=== PATIENT | female | born 1975 | race Caucasian/White ===

== ENCOUNTER 2023-08-14 22:37 | Outpatient (REF) | payer OTHER, SELFPAY ==
[2023-08-18 05:07] LABS: Age Gdln ACOG Testing Note (.); HPV Aptima Negative (Negative); IGP, Aptima HPV, rfx 16/18,45 Note (.)
== END 2023-08-14 22:38 | disposition home or self-care (01) ==
LOC: LAB 22:37
PROVIDERS: Visit Provider Physician Assistant
DX: Z01.419 Encounter for gynecological examination (general) (routine) without abnormal findings (principal)
CPT/HCPCS: 87624; G0145

== ENCOUNTER 2023-11-13 08:33 | Outpatient (OUT) | payer OTHER, SELFPAY ==
--- NOTE | 2023-11-13 08:36 | MM_ITS ---
Patient Name: AGUSTÍN BURNHAM MR#: [id number] : 1975 Exam Date: 11/13/2023 Ordering Doctor: DR Yaya Bacon . RADIOLOGY REPORT PROCEDURE: MM TOMOSYNTHESIS SCREENING BI COMPARISON: MG MAMM SCREEN 3D GUNJAN CAD, 09/21/2021. MG MAMM SCREEN 3D GUNJAN CAD, 10/26/2022. INDICATIONS: screening Calculator Name NCI Breast Cancer Risk Assessment Tool 5 Year Breast Cancer Risk 0.80% Lifetime Breast Cancer Risk 8.40% Personal Breast Cancer No Personal Ovarian Cancer No Treatments None Family Cancers Aunt-maternal with breast cancer at age ~43; Father with lung cancer at age 51. LOCATION: [facility] BREAST COMPOSITION: Heterogeneously dense,which may obscure small masses. FINDINGS: DIAGNOSTIC CATEGORY 2--BENIGN FINDING. NO CHANGE FROM COMPARISON. Scattered benign-appearing nodules are present. Scattered benign-appearing lymph nodes are present. RIGHT BREAST: No significant suspicious finding. LEFT BREAST: No significant suspicious finding. RECOMMENDATIONS: ROUTINE MAMMOGRAM AND CLINICAL EVALUATION IN 12 MONTHS. PLEASE NOTE: A NORMAL MAMMOGRAM DOES NOT EXCLUDE THE POSSIBILITY OF BREAST CANCER. A CLINICALLY SUSPICIOUS PALPABLE LUMP SHOULD BE BIOPSIED. Dictated by: Abelino Rolon MD on 11/14/2023 at 07:38 Approved by: Abelino Rolon MD on 11/14/2023 at 07:39
--- OUTSIDE RECORDS SUMMARY | 2023-11-13 08:50 | XMS_ITS | CCD ---
Author Organization [facility] Care Team Providers Care Stone Polisher Name Role Phone Jdmartytai DEVINE Eden Demario Primary Care Provider ESTEE EDEN Demario Referring Unavailable YONLEY, EDEN L Primary Care Unavailable YONLEY, EDEN L Referring Unavailable YONLEY, EDEN L Primary Care Unavailable PRAKASH ., SONJA Admitting Unavailable PRAKASH ., SONJA Attending Unavailable REQUEST, NONE LISTED Primary Care Unavaila ble KELLY ., DR BIGGS Admitting Unavailable KELLY ., DR BIGGS Attending Unavailable REQUEST, NONE LISTED Primary Care Unavaila ble KELLY ., DR BIGGS Consulting Unavailable PRAKASH ., SONJA Admitting Unavailable PRAKASH ., SONJA Attending Unavailable REQUEST, NONE LISTED Primary Care Unavaila ble PRAKASH ., SONJA Consulting Unavailable KELLY ., DR BIGGS Admitting Unavailable KELLY ., DR BIGGS Attending Unavailable [facility], DR SHERWOOD Primary Care Unavailable LEETONIA, DR DAGOBERTO Jernigan Consulting Unavailable KELLY ., DR BIGGS Consulting Unavailable Ruma, Seun Attending Unavailable Seun Hendrix Admitting Unavailable Hilda Barreto Primary Care Unavailable Anil Madison DO Primary Care Provider Hilda aBrreto NP Unavailable SONJA RANDALL Attending Unavailable PRAKASH, SONJA Attending Unavailable KELLYKALYAN Attending Unavailable Allergies Allergy Classification Reported Allergen(s) Allergy Type Date of Onset Reaction(s) Facility Penicillins (antibiotic) (2 sources) Amoxicillin Drug Allergy 09-10-19 [facility] Sulfonamides (antibiotic) (2 sources) Sulfonamides (Antibiotic) Drug Allergy 09-10-19 19 Rash [facility] (3 sources) Amoxicillin Drug Allergy 09-10-19 19 Rash, Unknown [facility] (3 sources) Sulfonamides (Antibiotic) Propensity to adverse reactions to drug 09-10-19 Rash JALYN JASEN [employer] Work Phone: (2 sources) Amoxicillin Drug Allergy 03-10-20 [facility] (2 sources) Sulfonamides (Antibiotic) Drug allergy (disorder) 03-10-20 [facility] (1 source) Sulfamethoxazole / Trimethoprim Drug Allergy 01-31-20 Unknown [facility] Medications Current Medications Medication Drug Class(es) Dates Sig (Normalized) Sig (Original) benzonatate 100 mg oral capsule (1 source) Non-narcotic Antitussive Start: 08-27-2021 take 1 capsule by mouth three times daily as needed for cough benzonatate (TESSALON) 100 MG capsule Take 1 capsule by mouth 3 times daily as needed for Cough 30 capsule 0 08/27/2021 Active levonorgestrel 0.769364 mg/hr intrauterine system (1 source) Progestin, Progestin-containin g Intrauterine Device Levonorgestrel (Mirena, 52 MG,) 20 MCG/DAY intrauterine device Mirena 0 Active MULTIPLE VITAMINS ESSENTIAL PO (1 source) MULTIPLE VITAMIN S ESSENTIAL PO Multiple Vitamins 0 Active triamcinolone acetonide 0.001 mg/mg topical ointment (3 sources) Corticosteroid Start: 02-16-2021 triamcinolone (KENALOG) 0.1 % ointment Indications: Pruritic erythematous rash Apply topically 2 times daily 453.6 g 0 02/16/2021 Active Start: 12-18-2018 triamcinolone (KENALOG) 0.1 % ointment Apply topically 2 times daily 30 g 0 12/18/2018 Active Problems Active Problems Problem Classification Problem Date Documented Date Episodic/Chronic Cardiac dysrhythmias (1 source) Palpitations; Translations: [Palpitations] Episodic Immunizations and screening for infectious disease (6 sources) Encounter for screening for human papillomavirus (HPV); Translations: [Contact with and (suspected) exposure to infections with a predominantly sexual mode of transmission] Onset: 08-03-2022 Episodic Lymphadenitis (1 source) Lymphadenopathy; Translations: [Generalized enlarged lymph nodes] Episodic Other hereditary and degenerative nervous system conditions (2 sources) Essential tremor; Translations: [Essential tremor] Onset: 08-24-2022 08-24-2022 Chronic Other screening for suspected conditions (not mental disorders or infectious disease) (14 sources) Patient encounter status; Translations: [Encounter for screening for cardiovascular disorders] Onset: 08-03-2022 Episodic Residual codes; unclassified (1 source) Family history of malignant neoplasm of breast; Translations: [FAMILY HX MALIG NEOPLASM OF BREAST] Onset: 10-29-2022 Episodic Residual codes; unclassified (1 source) Family history of malignant neoplasm of trachea, bronchus and lung; Translations: [FAM HX MALIG NEOPLSM TRACH BRON LNG] Onset: 10-29-2022 Episodic Unclassified (1 source) Abrasion of left elbow, initial encounter; Translations: [Abrasion of left elbow, initial encounter] Onset: 03-10-2023 Past or Other Problems Problem Classification Problem Date Documented Da te Episodic/Chronic Bacterial infection; unspecified site (5 sources) Chlamydial infection, unspecified; Translations: [Chlamydial infection] Onset: 09-08-2022 Episodic Genitourinary symptoms and ill-defined conditions (2 sources) Dysuria; Translations: [Dysuria] Onset: 05-16-2022 Episodic Other nutritional; endocrine; and metabolic disorders (4 sources) Simple obesity ; Translations: [Other obesity due to excess calories] Onset: 09-11-2018 Resolved: 11-23-2020 11-23-2020 Chronic Results Test Name Value Interpretation Reference Range Facil ity XR ankle BI 3Von 03-10-2023 XR ankle BI 3V [facility] [place] [address] XRay Report Signed Patient: Akosua Arnold MR#: [id number] : 1975 Acct:[id number] Age/Sex: 47 / F ADM Date: 03/10/23 Loc: ER Room: Type: [facility] ER Attending Dr: Copies to: Seun Hendrix APRN Ordering Provider: Seun Hendrix APRN Date of Service: 03/10/23 XR/XR ankle BI 3V: Extremity Injury, Lower 3 views both ankle plain film COMPARISON: None HISTORY: Bilateral ankle injuries ACUTE FINDINGS: None DEGENERATIVE CHANGE: Unremarkable SOFT TISSUE FINDINGS: Unremarkable JOINT EFFUSION: None POSTOP CHANGES: None BONE MINERALIZATION: Adequate XR/XR ankle BI 3V IMPRESSION: No acute findings. Impression dictated by: Geovanni Marquez M.D.03/10/2023 6:38 PM Dictation Location: [place] [address] Transcribed By: TAWANDA 03/10/231837 Dictated By: Geovanni Marquez DO 03/10/231836 Signed By: 03/10/231837 [facility] XR ankle BI 3V [facility] [place] [address] XRay Report Signed Patient: Akosua Arnold MR#: [id number] : 1975 Acct:[id number] Age/Sex: 47 / F ADM Date: 03/10/23 Loc: ER Room: Type: [facility] ER Attending Dr: Copies to: Seun Hendrix APRN Ordering Provider: Seun Hendrix APRN Date of Service: 03/10/23 XR/XR ankle BI 3V: Extremity Injury, Lower 3 views both ankle plain film COMPARISON: None HISTORY: Bilateral ankle injuries ACUTE FINDINGS: None DEGENERATIVE CHANGE: Unremarkable SOFT TISSUE FINDINGS: Unremarkable JOINT EFFUSION: None POSTOP CHANGES: None BONE MINERALIZATION: Adequate XR/XR ankle BI 3V IMPRESSION: No acute findings. Impression dictated by: Geovanni Marquez M.D.03/10/2023 6:38 PM Dictation Location: [place] [address] Transcribed By: TAWANDA 03/10/231837 Dictated By: Geovanni Marquez DO 03/10/231836 Signed By: 03/10/231837 [facility] MG MAMM SCREEN 3D GUNJAN CADon 10-26-2022 MG MAMM SCREEN 3D GUNJAN CAD Patient: AKOSUA ARNOLD. Exam Date: 10/26/2022 : 1975 Gender:F Ordering : DR KALYAN MENDOZA . Admission #: [id number] Family : Order #: [id number] CLICK HERE TO VIEW EXAM RADIOLOGY REPORT PROCEDURE: MAMMOGRAM SCREENING 3D BILATERAL CAD COMPARISON: MG MAMM SCREEN GUNJAN W CAD, 06/23/2020. MG MAMM SCREEN 3D GUNJAN CAD, 09/21/2021. INDICATIONS: Screening for cancer Calculator Name NCI Breast Cancer Risk Assessment Tool 5 Year Breast Cancer Risk 0.80% Lifetime Breast Cancer Risk 8.50% Personal Breast Cancer No Personal Ovarian Cancer No Treatments None Family Cancers Aunt-maternal with breast cancer at age 43; Father with lung cancer at age 51. LOCATION: [facility] BREAST COMPOSITION: Heterogeneously dense,which may obscure small masses. FINDINGS: DIAGNOSTIC CATEGORY 2--BENIGN FINDING. NO CHANGE FROM COMPARISON. Scattered benign-appearing nodules are present. Scattered benign-appearing calcifications are present. RIGHT BREAST: No significant suspicious finding. LEFT BREAST: No significant suspicious finding. RECOMMENDATIONS: ROUTINE MAMMOGRAM AND CLINICAL EVALUATION IN 12 MONTHS. PLEASE NOTE: A NORMAL MAMMOGRAM DOES NOT EXCLUDE THE POSSIBILITY OF BREAST CANCER. A CLINICALLY SUSPICIOUS PALPABLE LUMP SHOULD BE BIOPSIED. Dictated by: Dagoberto Rolon MD on 10/26/2022 at 08:46 Approved by: Dagoberto Rolon MD on 10/26/2022 at 08:49 Normal [facility] CHLAMYDIA/GONOCOCCUS MELANIE (SW AB/URINE/PAPon 09-12-2022 Chlamydia trachomatis, MELANIE Negative Normal Negative [facility] Comment on above: Performed By: #### C T/NGNA #### [facility] [address] [place], [place] [address] Dr. Kevin Mena Neisseria gonorrhoeae, MELANIE Negative Normal Negative [facility] Comment on above: Performed By: #### C T/NGNA #### [facility] [address] [place], [place] [address] Dr. Kevin Mena Glucose, Fastingon Glucose [Mass/Vol] 95 mg/dL Normal 70-99 [facility] Comment on above: Performed By: #### G LUF, ZFAST #### [facility] [address] [place] [address] Landscape Manager: Dagoberto Armas MD #### LIPR #### [facility] [address] [place] [address] Landscape Manager: Shun Sheehan MD Glucose [Mass/Vol] 95 mg/dL 70 - 99 mg/dL [facility] Lipid Panelon 08-25-2022 Cholesterol [Mass/Vol] 173 mg/dL NINF - 200 mg/dL [facility] Comment on above: Cholesterol Guidelines: <200 Desirable 200-240 Borderline >240 Undesirable Cholesterol in HDL [Mass/Vol] 52 mg/dL 40 - PINF mg/dL [facility] Comment on above: HDL Guidelines: <40 Undesirable 40-59 Borderline >59 Desirable Cholesterol in LDL [Mass/Vol] 107 mg/dL 0 - 130 mg/dL [facility] Comment on above: LDL Guidelines: <100 Desirable 100-129 Near to/above Desirable 130-159 Borderline >159 Undesirable Direct (measured) LDL and calculated LDL are not interchangeable tests. Cholesterol.total/Christy sterol in HDL [Mass ratio] 3.3 {ratio} NINF - 5 [facility] Triglyceride [Mass/Vol] 68 mg/[facility]dL [facility] Comment on above: Triglyceride Guidelines: <150 Desirable 150-199 Borderline 200-499 High >499 Very high Based on AHA Guidelines for fasting triglyceride, May 2012. [facility] Lipid Profileon 08-25-2022 Cholesterol [Mass/Vol] 173 mg/dL Normal <200 [facility] Comment on above: Result Comment: Cholesterol Guidelines: <200 Desirable 200-240 Borderline >240 Undesirable Performed By: #### PILAR CADENA #### [facility] [address] [place] [address] Landscape Manager: Dagoberto Armas MD #### LIPR #### [facility] [employer] [address] [place] [address] [phone] Landscape Manager: Shun Sheehan MD Cholesterol in HDL [Mass/Vol] 52 mg/dL Normal >40 [facility] Comment on above: Result Comment: HDL Guidelines: <40 Undesirable 40-59 Borderline >59 Desirable Performed By: #### PILAR CADENA #### [facility] [address] [place] [address] Landscape Manager: Dagoberto Armas MD #### LIPR #### [address] [id number] Landscape Manager: Shun Sheehan MD Cholesterol in LDL [Mass/Vol] 107 mg/dL Normal 0-130 [facility] Comment on above: Result Comment: LDL Guidelines: <100 Desirable 100-129 Near to/above Desirable 130-159 Borderline >159 Undesirable Direct (measured) LDL and calculated LDL are not interchangeable tests. Performed By: #### PILAR CADENA #### [facility] [address] [place], [place] [phone] Landscape Manager: Dagoberto Armas MD #### LIPR #### [address] [phone] Landscape Manager: Shun Sheehan MD Cholesterol.total/Christy sterol in HDL [Mass ratio] 3.3 {ratio} Normal <5 [facility] Comment on above: Performed By: #### PILAR CADENA #### [facility] [address] [place], [place] [phone] Landscape Manager: Dagoberto Armas MD #### LIPR #### [address] [phone] Landscape Manager: Shun Sheehan MD Triglyceride [Mass/Vol] 68 mg/dL Normal <150 [facility] Comment on above: Result Comment: Triglyceride Guidelines: <150 Desirable 150-199 Borderline 200-499 High >499 Very high Based on AHA Guidelines for fasting triglyceride, May 2012. Performed By: #### PILAR CADENA #### [facility] [address] [place], [place] [phone] Landscape Manager: Dagoberto Armas MD #### LIPR #### [address] [phone] Landscape Manager: Shun Sheehan MD Patient Fasting?on 3 Patient Fasting? yes [facility] Patient fasting?on 3 Patient fasting? yes Normal [facility] Comment on above: Performed By: #### G LUF, ZFAST #### [facility] [address] [place] [address] Landscape Manager: Dagoberto Armas MD #### LIPR #### [facility] [address] [place] [address] Landscape Manager: Shun Sheehan MD PAP ACOG PANEL 2: 30 to 65on 08-11-2022 . . Normal [facility] Comment on above: Result Comment: Perf ormed at: BA Performed By: #### [id number] #### [facility] [address] [place] [address] Dr. Kevin Mena Age Gdln ACOG Testing - [facility] Comment on above: Performed By: #### [id number] #### [facility] [address] [place] [address] [address] Kevin Mena DIAGNOSIS: Comment Normal [facility] Comment on above: Result Comment: NEGA TIVE FOR INTRAEPITHELIAL LESION OR MALIGNANCY. Performed at: BA Performed By: #### [id number] #### [facility] [address] [place] [address] [address] Kevin Mena HPV Aptima Negative Normal Negative [facility] Comment on above: Result Comment: This nucleic acid amplification test detects fourteen high-risk HPV types (16,18,31,33,35,39,45,51,52,56,58,59,66,68) without differentiation. Performed at: =G Performed By: #### [id number] #### [facility] [address] [place] [address] [address] Kevin Mena HPV Genotype Reflex Comment Normal [facility] Comment on above: Result Comment: Crit eria not met, HPV Genotype not performed. Performed at: BA Performed By: #### [id number] #### [facility] [address] [place] [address] [address] Kevin Mena Methodology: Comment Normal [facility] Comment on above: Result Comment: This liquid based ThinPrep(R) pap test was screened with the use of an image guided system. Performed at: WB Performed By: #### [id number] #### [facility] [address] [place] [address] Dr. Kevin Mena Note: Comment Normal [facility] Comment on above: Result Comment: The Pap smear is a screening test designed to aid in the detection of premalignant and malignant conditions of the uterine cervix. It is not a diagnostic procedure and should not be used as the sole means of detecting cervical cancer. Both false-positive and false-negative reports do occur. . Performed at: WB Performed By: #### [id number] #### [facility] [address] [place] [address] Dr. Kevin Mena Performed by: Comment Normal [facility] Comment on above: Result Comment: Drea Limon, Strategic Planning Director (ASCP) Performed at: BA Performed By: #### [id number] #### [facility] [address] [place] [address] Dr. Kevin Mena Specimen adequacy: Comment Normal [facility] Comment on above: Result Comment: Sati sfactory for evaluation. No endocervical component is identified. Performed at: BA Performed By: #### [id number] #### [facility] [address] [place] [address] Dr. Kevin Mena CHLAMYDIA/GONOCOCCUS MELANIE (SW AB/URINE/PAPon 08-06-2022 Chlamydia trachomatis, MELANIE Positive Abnormal Negative [facility] Comment on above: Result Comment: . Performed By: #### C T/NGNA #### [facility] [address] [place] [address] Dr. Kevin Mena Neisseria gonorrhoeae, MELANIE Negative Normal Negative [facility] Comment on above: Performed By: #### C T/NGNA #### [facility] [address] [place] [address] Dr. Kevin Mena VAGINITIS/VAGINOSIS DNA PROB Deng 08-05-2022 Vijaya species Negative Normal Negative [facility] Comment on above: Performed By: #### V AGINT #### [facility] [address] [place] [address] Dr. Kevin Mena Gardnerella vaginalis Negative Normal Negative [facility] Comment on above: Performed By: #### V AGINT #### [facility] [address] [place] [address] [address] Kevin Mena Trichomonas vaginalis Negative Normal Negative [facility] Comment on above: Performed By: #### V AGINT #### [facility] [address] [place] [address] [address] Kevin Mena Microscopic Urinalysison - [facility] Bacteria, UA RARE Abnormal None [facility] Epithelial Cells UA 20 TO 50 /HPF [facility] Interpretation and review of laboratory results Abnormal [facility] Mucus, UA 1+ Abnormal None [facility] RBC, UA 2 TO 5 [facility] WBC, UA 5 TO 10 0 /HPF [facility] UA w/Reflex Cultureon 2021 Bilirubin, SemiQt,Ur Negative Normal NEG [facility] Comment on above: Performed By: #### U MICAO, UAX #### [facility] [address] [place], [place] [phone] Landscape Manager: Dagoberto Armas MD Blood, Urine TRACE Abnormal NEG [facility] Comment on above: Performed By: #### U MICAO, UAX #### [facility] [address] [place] [address] Landscape Manager: Dagoberto Armas MD Clarity (U) Clear Normal CLEAR [facility] Comment on above: Performed By: #### U MICAO, UAX #### [facility] [address] [place] [address] Landscape Manager: Dagoberto Armas MD Color (U) Yellow Normal YEL [facility] Comment on above: Performed By: #### U MICAO, UAX #### [facility] [address] [place], [place] [phone] Landscape Manager: Dagoberto Armas MD Comment Normal [facility] Comment on above: Performed By: #### U MICAO, UAX #### [facility] [address] [place], [place] [phone] Landscape Manager: Dagoberto Armas MD Glucose Ql (U) Negative Normal NEG [facility] Comment on above: Performed By: #### U MICAO, UAX #### [facility] [address] [place], [place] [phone] Landscape Manager: Dagoberto Armas MD Ketones Ql (U) Negative Normal NEG [facility] Comment on above: Performed By: #### U MICAO, UAX #### [facility] [address] [place] [address] Landscape Manager: Dagoberto Armas MD Leukocyte esterase Test strip Ql (U) 1+ Abnormal NEG [facility] Comment on above: Performed By: #### U AMBARO, UAX #### [facility] [address] [place] [address] Landscape Manager: Dagoberto Armas MD Nitrite,Ur Negative Normal NEG [facility] Comment on above: Performed By: #### U MICAO, UAX #### [facility] [address] [place] [address] Landscape Manager: Dagoberto Armas MD PH,Ur 6.0 Normal 5.0-8.0 [facility] Comment on above: Performed By: #### U MICAO, UAX #### [facility] [address] [place], [place] [phone] Landscape Manager: Dagoberto Armas MD Protein Ql (U) TRACE Abnormal NEG [facility] Comment on above: Performed By: #### U MICAO, UAX #### [facility] [address] [place], [place] [phone] Landscape Manager: Dagoberto Armas MD Spec. [place],Ur 1.020 Normal 1.005-1.030 [facility] Comment on above: Performed By: #### U ALEX UAX #### [facility] [address] [place] [address] Landscape Manager: Dagoberto Armas MD Urobilinogen,Ur Normal Normal NORM [facility] Comment on above: Performed By: #### U ALEX UAX #### [facility] [address] [place] [address] Landscape Manager: Dagoberto Armas MD Urinalysis with Reflex to Cu ltureon 05-16-2022 Bilirubin Urine Negative NEGATIVE [facility] Color, UA Yellow Yellow [facility] Glucose, Ur Negative NEGATIVE [facility] Interpretation and review of laboratory results Abnormal [facility] Ketones Ql (U) Negative NEGATIVE [facility] Leukocyte esterase Test strip Ql (U) 1+ Abnormal NEGATIVE [facility] Nitrite, Urine Negative NEGATIVE [facility] pH, UA 6.0 5 - 8 [facility] Protein, UA TRACE Abnormal NEGATIVE [facility] Specific [place], UA 1.020 1.005 - 1.[address] [facility] Turbidity UA Clear Clear [facility] Urinalysis Comments [facility] Urine Hgb TRACE Abnormal NEGATIVE [facility] Urobilinogen, Urine Normal Normal [facility] Urinalysis,Microon 2 ----- Normal [facility] Comment on above: Performed By: #### U LAEX UAX #### [facility] [address] [place] [address] Landscape Manager: Dagoberto Armas MD Bacteria RARE Abnormal NONE [facility] Comment on above: Performed By: #### U ALEX UAX #### [facility] [address] [place] [address] Landscape Manager: Dagoberto Armas MD Epithelial cells LM Ql (Urine sed) 20 TO 50 Normal [facility] Comment on above: Performed By: #### U ALEX UAX #### [facility] [address] [place], [place] [phone] Landscape Manager: Dagoberto Armas MD Mucus Strands 1+ Abnormal NONE [facility] Comment on above: Performed By: #### U MICAO, UAX #### [facility] [address] [place], [place] [phone] Landscape Manager: Dagoberto Armas MD Urine RBC's 2 TO 5 Normal 0-2 [facility] Comment on above: Performed By: #### U MICAO, UAX #### [facility] [address] [place], [place] [phone] Landscape Manager: Dagoberto Armas MD Urine WBC's 5 TO 10 Normal 0 [facility] Comment on above: Performed By: #### U MICAO, UAX #### [facility] [address] [place], [place] [phone] Landscape Manager: Dagoberto Armas MD T. pallidum AbOrdered By: Johan Fontanez on 01-20-2021 T. pallidum, IgG Non-Reactive NONREACTIVE [facility] Work Phone: Comment on above: T. pallidum antibodies are not detected. There is no serological evidence of infection with T. pallidum (early primary syphilis cannot be excluded). Retest in 2-4 weeks if syphilis is clinically suspect. [employer] Work Phone: CBC Auto DifferentialOrdered By: Eden Fontanez on 11-23-2020 [employer] # 0.20 [employer] [facility] Work Phone: Absolute Immature Granulocyte NOT REPORTED [facility] Work Phone: [facility] Lymph # [address] [facility] Work Phone: [facility] Kings # [address] [facility] Work Phone: Basophils (Bld) [#/Vol] 0.00 10*3/uL ? Phone: Basophils/100 WBC (Bld) 1 % 0 - 2 % M [employer] [facility] [place] Phone: Differential Type YES [employer] Phone: Eosinophils/100 WBC (Bld) 2 % 0 - 5 % ? Phone: Hematocrit (Bld) [Volume fraction] 39.1 % 36 - 46 % ? Phone: Hemoglobin.gastrointest inal spec 1 Ql (Stl) 13.2 g/dL 12.0 - 16.0 g/dL ? Phone: Immature Granulocytes NOT REPORTED 0 % M [facility] Phone: Lymphocytes/100 WBC (Bld) 29 % 15 - 40 % ? Phone: MCH (RBC) [Entitic mass] 32.5 pg 26 - 34 pg ? Phone: MCHC (RBC) [Mass/Vol] 33.8 g/dL 31 - 37 g/dL M [facility] Phone: MCV (RBC) [Entitic vol] 96.3 fL 80 - 100 fL ? Phone: Monocytes/100 WBC (Bld) 5 % 4 - 8 % M [facility] Phone: NRBC Automated NOT REPORTED per 100 WBC [employer] Phone: Platelet distribution width (Bld) [Ratio] 13.0 % 12.1 - 15.2 % ? Phone: Platelet Estimate NOT REPORTED ? Phone: Platelet mean volume (Bld) [Entitic vol] NOT REPORTED 6.0 - 12.0 fL ? Phone: Platelets (Bld) [#/Vol] 282 10*3/uL [facility] Phone: RBC (Bld) [#/Vol] 4.06 10*6/uL 4.0 - 5.2 m/uL M [facility] [employer] Work Phone: RBC (Bld) [#/Vol] NOT REPORTED [facility] Phone: Segmented neutrophils/100 WBC (Bld) 63 % 47 - 75 % [facility] Phone: [employer] Work Phone: WBC (Bld) [#/Vol] 7.5 10*3/uL [facility] Phone: WBC (Bld) [#/Vol] NOT REPORTED [facility] Phone: Comprehensive Metabolic Pane lOrdered By: Eden Fontanez on 11-23-2020 Albumin [Mass/Vol] 4.2 g/dL 3.5 - 5.2 g/dL [facility] [employer] Work Phone: Albumin/Globulin Ratio NOT REPORTED [facility] Phone: ALP (Bld) [Catalytic activity/Vol] 74 U/L 35 - 104 U/L [facility] Phone: ALT [Catalytic activity/Vol] 17 U/L 5 - 33 U/L [facility] Phone: Anion gap [Moles/Vol] 8 mmol/L Low 9 - 17 mmol/L [facility] Phone: AST [Catalytic activity/Vol] 20 U/L <[address] [facility] Phone: Bilirubin [Mass/Vol] 0.50 mg/dL 0.30 - 1.20 mg/dL [facility] Phone: Calcium [Mass/Vol] 9.6 mg/dL 8.6 - 10. 4 mg/dL [facility] Phone: Chloride [Moles/Vol] 104 mmol/L 98 - 107 mmol/L ? Phone: CO2 [Moles/Vol] 28 mmol/L 20 - 31 mmol/L [facility] Phone: Creatinine [Mass/Vol] 0.81 mg/dL 0.50 - 0.90 mg/dL [facility] Phone: Free PSA/Total PSA [Mass fraction] 6.8 g/dL 6.4 - 8.3 g/dL ? Phone: GFR >60 >60 mL/min [employer] Phone: GFR Non- >60 >60 mL/min [facility] Phone: GFR/1.73 sq M.predicted MDRD (S/P/Bld) [Vol rate/Area] [facility] Phone: Comment on above: Average GFR for 40-4 9 years old: 99 mL/min/1.73sq m Chronic Kidney Disease: <60 mL/min/1.73sq m Kidney failure: <15 mL/min/1.73sq m eGFR calculated using average adult body mass. Additional eGFR calculator available at: http://www.[employer]/multiple_crcl_2012.htm GFR/1.73 sq M.predicted MDRD (S/P/Bld) [Vol rate/Area] NOT REPORTED [facility] Phone: Glucose [Mass/Vol] 89 mg/dL 70 - 99 mg/dL [facility] [employer] Phone: Interpretation and review of laboratory results Abnormal [facility] Phone: Potassium [Moles/Vol] 3.8 mmol/L 3.7 - 5.3 mmol/L [facility] Phone: Sodium [Moles/Vol] 140 mmol/L 135 - 144 mmol/L [facility] Phone: Urea nitrogen (BldV) [Mass/Vol] 16 mg/dL 6 - 20 mg/dL ? Phone: Urea nitrogen/Creatinine (Bld) [Mass ratio] [address] [facility] Phone: Lipid PanelOrdered By: Shari Fontanez on 11-23-2020 Cholesterol [Mass/Vol] 146 mg/dL <200 [employer] Work Phone: Comment on above: Cholesterol Guidelines: <200 Desirable 200-240 Borderline >240 Undesirable Cholesterol in HDL [Mass/Vol] 49 mg/dL >[address] [facility] Phone: Comment on above: HDL Guidelines: <40 Undesirable 40-59 Borderline >59 Desirable Cholesterol in LDL [Mass/Vol] 80 mg/dL 0 - 130 mg/dL ? Phone: Comment on above: LDL Guidelines: <100 Desirable 100-129 Near to/above Desirable 130-159 Borderline >159 Undesirable Direct (measured) LDL and calculated LDL are not interchangeable tests. Cholesterol in VLDL [Mass/Vol] NOT REPORTED 1 - 30 mg/dL ? Phone: Cholesterol.total/Christy sterol in HDL [Mass ratio] 3 {ratio} <[address] [facility] Phone: Triglyceride [Mass/Vol] 87 mg/dL <150 [facility] Phone: Comment on above: Triglyceride Guidelines: <150 Desirable 150-199 Borderline 200-499 High >499 Very high Based on AHA Guidelines for fasting triglyceride, May 2012. Patient Fasting?Ordered By: Eden Fontanez on 11-23-2020 Patient Fasting? yes [employer] Phone: TSH with ReflexOrdered By: Etelvina Fontanez on 11-23-2020 TSH Qn 2.53 m[IU]/L ? Phone: Coding Summary.on 07-04-2020 Coding Summary. CODING DATE: 07/04/2020 FINAL [facility] STATUS: Home (Routine DC) PAYOR: [facility] [place] ADMIT DX: REASON FOR VISIT DX: Z01.419 Encounter for gynecological examination (general) (routine) without abnormal findings FINAL DX: PRINCIPAL: Z01.419 Encounter for gynecological examination (general) (routine) without abnormal findings SECONDARY: Z11.51 Encounter for screening for human papillomavirus (HPV) PYMT PROC APC STAT DESCRIPTION DOCTOR NAME DATE NOTE: The code number assigned matches the documented diagnosis and / or procedure in the patient's chart. However, the narrative phrase printed from the coding software may appear abbreviated, or result in slightly different terminology. Coded By: Yadi Adam Date Saved: 07/04/2020 06:52 am Normal [facility] Physician Orderon 06-18-2020 Physician Order [id number] 2#1.00CD:127 Normal [facility] Encounters Encounter Date Encounter Type Care Provider Facility Start: 09-11-2023 End: 09-11-2023 ambulatory SONJA RANDALL Not Available Start: 08-14-2023 End: 08-14-2023 ambulatory SONJA RANDALL Not Available Start: 07-17-2023 End: 07-17-2023 ambulatory SONJA RANDALL Not Available Start: 06-19-2023 End: 06-19-2023 ambulatory KALYAN MENDOZA Not Available Start: 04-03-2023 Chart abstracting Hilda Barreto NP Work Phone: [facility] [address] Start: 03-10-2023 End: 03-10-2023 Emergency department patient visit Seun Hendrix Facility:[facility] Start: 10-26-2022 End: 10-27-[address] KALYAN MENDOZA . Facility:[facility] Start: 09-08-2022 End: 09-08-2022 ambulatory SONJA RANDALL . Facility:[facility] Start: 08-25-2022 End: 08-26-2022 ambulatory EDEN FONTANEZ [facility] Start: 08-25-2022 End: 08-25-2022 Subsequent hospital visit by physician Eden Fontanez DO Work Phone: [facility] Comment on above: Screening for diabet es mellitus; Screening for cardiovascular condition Start: 08-03-2022 End: 08-03-[address] KALYAN MENDOZA . Facility: Start: 05-16-2022 End: 05-17-2022 ambulatory EDENJEFFERY FONTANEZ [facility] Start: 05-16-2022 End: 05-16-2022 Subsequent hospital visit by physician Eden Fontanez DO Work Phone: [facility] Comment on above: Dysuria Start: 01-19-2021 End: 01-19-2021 Subsequent hospital visit by physician Eden Fontanez DO Work Phone: [facility] Start: 11-23-2020 End: 11-23-2020 Subsequent hospital visit by physician Eden Fontanez DO Work Phone: [facility] Comment on above: Lymphadenopathy; Screening for cardiovascular condition; Palpitation Procedures Date Procedure Procedure Detail Performing Clinician Start: 10-26-2022 Mammography Hilda Barreto ADVERTISING ASSISTANT Work Phone: Start: 08-25-[address] gtt 3 specimens Eden Demario Estee DO Work Phone: Start: 08-25-2022 Lipid panel Eden L Jdmartytai DO Work Phone: Start: 08-25-2022 PATIENT FASTING? Gutierrez Hanks Jdmartytia DO Work Phone: Start: 05-16-2022 Urinalysis microscopic only Eden Demario Jdmartytai DO Work Phone: Start: 05-16-2022 Urnls dip stick/tabl et rgnt auto w/o microscopy Eden L Jdmartytai DO Work Phone: Start: 01-19-2021 T. PALLIDUM AB Eden Demario Jdmartytai DO Work Phone: Start: 11-23-2020 Comprehensive metabo lic panel Eden L Jdmartytai DO Work Phone: Start: 11-23-2020 Lipid panel Eden Demario Jdmartytai DO Work Phone: Start: 11-23-2020 PATIENT FASTING? Gutierrez Fontanez DO Work Phone: Plan of Treatment Date Care Activity Detail Author Start: 11-23-2025 Lipid panel [facility] Start: 08-26-2024 End: 08-26-2024 Patient encounter procedure 08/26/2024 10:00 AM EST Office Visit [facility] [address] [place] [address] Sonja Randall PA [address] [place] [address] [place], [place] [id number] [facility] Start: 10-27-2023 Screening for malign ant neoplasm of breast Mammogram [facility] Start: 10-26-2023 DTaP/Tdap/Td vaccine (2 - Td or Tdap) DTaP/Tdap/Td vaccine (2 - Td or Tdap) [facility] Start: 09-13-2023 End: 09-13-2023 Patient encounter procedure 09/13/2023 4:00 PM EST Office Visit [facility] [address] [facility] [address] [place] [id number] Hilda Barreto, ADVERTISING ASSISTANT [address] [place] [address] [facility] [address] Start: 09-11-2023 End: 09-11-2023 Patient encounter procedure 09/11/2023 3:30 PM EST Office Visit [facility] [address] [place] [phone] Sonja Randall, PA [address] [place] [address] [place], [place] [id number] [facility] Start: 08-23-2023 Depression Screen Depression Screen [facility] Start: 08-23-2023 Influenza vaccination Flu vaccine (# 1) [facility] Comment on above: Postponed from 03/07 (Patient Refused) Start: 04-07-2023 Influenza vaccination Influenza Vacc ine (#1) [facility] Start: 03-07-2022 Influenza vaccination Flu vaccine (# 1) [facility] Start: 11-20-2021 Depression Screen Depression Screen [facility] Start: 04-07-2021 Influenza vaccination Flu vacc ine (Season Ended) ? Phone: Start: 12-30-2020 Screening for malign ant neoplasm of colon [facility] Start: 12-30-2005 Screening for malign ant neoplasm of cervix [facility] Start: 12-30-1996 Screening for malign ant neoplasm of cervix [facility] Start: 12-30-1994 DTaP/Tdap/Td vaccine (1 - Tdap) DTaP/Tdap/Td vaccine (1 - Tdap) ? Phone: Start: 12-30-1993 Hepatitis C screening Hepatitis C sc reen [facility] Start: 1991 COVID-19 Vaccine (1) COVID-19 Vaccin e (1) ? Phone: Start: 12-30-1990 HIV screening HIV screen [facility] [employer] Start: 1987 COVID-19 Vaccine (1) COVID-19 Vaccin e (1) ? Phone: Start: 07-02-1976 COVID-19 Vaccine (#1) COVID-19 Vacci ne (#1) [facility] Start: 1975 Hepatitis C screening [facility] Phone: Start: 1975 Screening for malign ant neoplasm of colon [facility] Healthcare Immunizations Immunization Date Immunization Notes Care Provider Nichole isidro 10-08-2021 hepatitis A vaccine, adult dosage Eden Yonley DO Work Phone: [facility] [email or web address] Phone: 02-19-2021 hepatitis A vaccine, adult dosage Eden Yonley DO Work Phone: [employer] Work Phone: 06-06-2014 hepatitis B vaccine, adult dosage Eden Fontanez DO Work Phone: [facility] [employer] Work Phone: 12-02-2013 hepatitis B vaccine, adult dosage Eden Fontanez DO Work Phone: [employer] Work Phone: 10-25-2013 hepatitis B vaccine, adult dosage Eden Fontanez DO Work Phone: [employer] Work Phone: 10-25-2013 tetanus toxoid, redu adonis diphtheria toxoid, and acellular pertussis vaccine, adsorbed Eden Fontanez DO Work Phone: [employer] Work Phone: Payers Date Payer Category Payer Self-pay 2022 Unknown [employer] [id number] 2022-Present [address] [place] [address] [id number] 2021 Private Health Insurance [id number] 2019 Unknown BCBS [place] - [place] P PO [id number] 2019-Present [address] [place] [address] [id number] 1975 Unknown [id number] 74 1975 Unknown [id number] 1975 Unknown [id number] [id number] 93 1975 Unknown [id number] 93 1975 Unknown [id number] 93 1975 Unknown [id number] 93 1975 Unknown [id number] 259 1975 Unknown [id number] 259 1975 Unknown [id number] [id number] 259 1975 Unknown [id number] 259 1959 Unknown [id number] Unknown [id number] 31 Unknown [id number] 31 Social History Date Type Detail Facility Start: 11-20-2020 End: 01-30-2023 Tobacco smoking status [facility] Never smoker ? Phone: Start: 11-20-2020 End: 01-30-2023 Tobacco use and exposure Never used [employer] Start: 11-20-2020 End: 08-24-2022 Alcohol intake Current non-drinker of alcohol (finding) ? Phone: Start: 11-20-2020 End: 08-23-2022 History SDOH Financial 5 ? Phone: Start: 11-20-2020 End: 08-23-2022 History SDOH Food Worry 1 ? Phone: Start: 1975 Sex Assigned At Not on file [facility] Phone: Start: 04-03-2023 Alcohol intake [facility] Start: 01-30-2023 End: 09-06-2023 [facility] of Social function [facility] Start: 01-30-2023 End: 09-06-2023 Humiliation, Afraid, Rape, and Kick questionnaire [HARK] [facility] Within the last year , have you been afraid of your partner or ex-partner? No [facility] Do you belong to any clubs or organizations such as religious groups, unions, fraternal or athletic groups, or school groups? Yes [facility] Are you now , , , , never or living with a partner? [facility] How often to you hav e a drink containing alcohol? Monthly or less [facility] How many standard dr inks containing alcohol do you have on a typical day? 1 or 2 [facility] How often do you hav e 6 or more drinks on 1 occasion? Never [facility] How hard is it for y ou to pay for the very basics like food, housing, medical care, and heating Not very hard [facility] Do you feel stress - tense, restless, nervous, or anxious, or unable to sleep at night because your mind is troubled all the time - these days [OSQ] Only a little [facility] (I/We) worried wheth er (my/our) food would run out before (I/we) got money to buy more. Never true [facility] In the past 12 month s, has lack of transportation kept you from medical appointments or from getting medications? No [facility] Evaluation note Note Date & Type Note Facility Evaluation note Diagnosis Lymphadenopathy Enlargement of lymph nodes Screening for cardiovascular condition Screening for other and unspecified cardiovascular conditions Palpitation Palpitations documented in this encounter ? Phone: Evaluation note Note Date & Type Note Facility Evaluation note Diagnosis Dysuria documented in this encounter [facility] [employer] Phone: Evaluation note Note Date & Type Note Facility Evaluation note Diagnosis Screening for diabetes mellitus Screening for cardiovascular condition Screening for other and unspecified cardiovascular conditions documented in this encounter [facility] [employer] Work Phone: Summary Purpose Family History No Family History Records FoundNo Family History Records FoundNo Family History Records FoundNo Family History Records FoundNo Family History Records FoundNo Family History Records Found Advance Directives No Advanced Directives Records FoundDocuments on File Type Date Recorded 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 ACP-Advance Directive ACP-Power of Scheduling Manager Additional Source Comments INFORMATION SOURCE (unrecogn ized section and content) DATE CREATED AUTHOR 07/04/2020 Conway Jez [facility] DATE CREATED AUTHOR AUTHOR'S ORGANIZ ATION 08/31/2022 [facility] DATE CREATED AUTHOR AUTHOR'S ORGANIZ ATION 10/30/2022 [facility] DATE CREATED AUTHOR AUTHOR'S ORGANIZ ATION 03/11/2023 [facility] DATE CREATED AUTHOR AUTHOR'S ORGANIZ ATION 03/27/2023 [facility] DATE CREATED AUTHOR AUTHOR'S ORGANIZ ATION 09/12/2023 [facility] Specialists [employer] Care Teams (unrecognized sec tion and content) Stone Polisher Relationship Specialty Start Date End Date Eden Fontanez DO [address] [place] [address] PCP - General Family Medicine 04/30/18 Stone Polisher Relationship Specialty Start Date End Date Eden Fontanez DO [address] [place] [address] PCP - General Family Medicine 04/30/18 Stone Polisher Relationship Specialty Start Date End Date Anil Madison DO [address] [place] [address] PCP - General Family Medicine 01/30/23 Hilda Barreto NP [address] [place] [address] Nurse Practitioner Family Medicine 01/30/23 FOR RECORDS PERTAINING TO PATIENTS WHO ARE OR HAVE BEEN ENROLLED IN A CHEMICAL DEPENDENCY/SUBSTANCEABUSE PROGRAM, SOME INFORMATION MAY BE OMITTED. This clinical summary was aggregated from multiple sources. Caution should be exercised in using it in the provision of clinical care. This summary normalizes information from multiple sources, and as a consequence, information in this document may materially change the coding, format and clinical context of patient data. In addition, data may be omitted in some cases. CLINICAL DECISIONS SHOULD BE BASED ON THE PRIMARY CLINICAL RECORDS. [facility] [employer] provides no warranty or guarantee of the accuracy or completeness of information in this document.
== END 2023-11-13 08:34 | disposition home or self-care (01) ==
LOC: MAMMO 08:33
PROVIDERS: Visit Provider Obstetrics & Gynecology
DX: Z12.31 Encounter for screening mammogram for malignant neoplasm of breast (principal); Z80.3 Family history of malignant neoplasm of breast; Z80.1 Family history of malignant neoplasm of trachea, bronchus and lung
CPT/HCPCS: 77063; 77067

== ENCOUNTER 2024-08-26 21:56 | Outpatient (REF) | payer OTHER, SELFPAY ==
--- OUTSIDE RECORDS SUMMARY | 2024-08-26 22:00 | XMS_ITS | CCD ---
Author Organization [facility] Care Team Providers Care Tag Writer Name Role Phone Eden Fontanez DO Primary Care Provider [phone] JOHAN FONTANEZSSICA Demario Referring Unavailable YONLEY, EDEN L Primary Care Unavailable YONLEY EDEN L Referring Unavailable YONLEY, EDEN L Primary Care Unavailable PRAKASH .SONJA Admitting Unavailable PRAKASH ., SONJA Attending Unavailable [...] Unavailable KELLY ., DR BIGGS Attending Unavailable [facility], DR SHERWOOD Primary Care Unavailable [place], DR DAGOBERTO Jernigan Consulting Unavailable KELLY ., DR BIGGS Consulting Unavailable Seun Hendrix Attending Unavailable Seun Hendrix Admitting Unavailable Hilda Barreto Primary Care Unavailable Anil Madison DO Primary Care Provider Hilda Barreto NP Unavailable SONJA RANDALL Attending Unavailable SONJA RANDALL Attending Unavailable KELLYKALYAN Attending Unavailable PRAKASH SONJA Attending Unavailable Allergies Allergy Classification Reported Allergen(s) Allergy Type Date of Onset Reaction(s) Facility Penicillins (antibiotic) (2 sources) Amoxicillin Drug Allergy 09-10-19 [facility] Sulfonamides (antibiotic) (2 sources) Sulfonamides (Antibiotic) Drug Allergy 09-10-19 19 [facility] (6 sources) Amoxicillin Drug Allergy 09-10-19 19 Rash, Unknown [facility] (6 sources) Sulfonamides (Antibiotic) Propensity to adverse reactions to drug 09-10-19 Rash [facility] Work Phone: (2 sources) Amoxicillin Drug Allergy 03-10-20 [facility] (2 sources) Sulfonamides (Antibiotic) Drug allergy (disorder) 03-10-20 [facility] (4 sources) Sulfamethoxazole / Trimethoprim Drug Allergy 01-31-20 Unknown [facility] Medications Current Medications Medication Drug Class(es) Dates Sig (Normalized) Sig (Original) ascorbic acid 250 mg oral tablet (3 sources) Vitamin C take 1 tablet by mouth in the morning Ascorbic Acid (vitamin C) 250 MG tablet Take 250 mg by mouth in the morning. Active benzonatate 100 mg oral capsule (1 source) Non-narcotic Antitussive Start: 08-27-2021 take 1 capsule by mouth three times daily as needed for cough benzonatate (TESSALON) 100 MG capsule Take 1 capsule by mouth 3 times daily as needed for Cough 30 capsule 0 08/27/2021 Active ergocalciferol 1.25 mg oral capsule (3 sources) Provitamin D2 Compound take 1 capsule by mouth every week ergocalciferol (Vitamin D-2) 1.25 MG (91273 UT) capsule Take 1.25 mg by mouth 1 (one) time per week. Active levonorgestrel 0.051865 mg/hr intrauterine system (7 sources) Progestin, Progestin-containi ng Intrauterine Device Start: 05-22-2023 Levonorgestrel intrauterine device 52 mg Levonorgestrel ( Mirena, 52 MG,) 20 MCG/DAY intrauterine device Mirena Active MULTIPLE VITAMINS ESSENTIAL PO (4 sources) MULTIPLE VITAMIN S ESSENTIAL PO Multiple Vitamins Active MULTIPLE VITAMIN S ESSENTIAL PO Multiple Vitamins 0 Active phentermine hydrochloride 37.5 mg oral tablet (11 sources) Sympathomimetic Amine Anorectic Start: 07-17-2023 End: 11-24-2024 take 1 tablet by mouth before mealtime phentermine (Adipex-P) 37.5 MG tablet Indications: Encounter for weight management Take 1 tablet (37.5 mg) by mouth in the morning. Take before meals. 90 tablet 08/26/2024 11/24/2024 Active spironolactone 25 mg oral tablet (3 sources) Aldosterone Antagonist Start: 11-24-2023 End: 08-26-2024 take 1 tablet by mouth once daily in the morning spironolactone (Aldactone) 25 MG tablet Indications: Other acne take 1 tablet by mouth every morning 30 tablet 2 11/24/2023 08/26/2024 Discontinued (Other) triamcinolone acetonide 0.001 mg/mg topical ointment (3 [...] Other hereditary and degenerative nervous system conditions (5 sources) Essential tremor; Translations: [Essential tremor] Onset: 08-24-2022 08-24-2022 Chronic Other screening for suspected conditions (not mental disorders or infectious disease) (20 sources) Patient encounter status; Translations: [Encounter for [...] Da te Episodic/Chronic Bacterial infection; unspecified site (8 sources) Chlamydial infection, unspecified; Translations: [Chlamydial infection] [...] BI 3Von 03-10-2023 XR ankle BI [address]V [facility] [place] [address] XRay Report Signed Patient: Akosua Arnold MR#: [id number] : 1975 Acct:[id number] Age/Sex: 47 / F ADM Date: 03/10/23 Loc: ER Room: Type: [facility] ER Attending Dr: Copies to: Seun Hendrix [...] Geovanni Marquez M.D.03/10/2023 6:38 PM Dictation Location: [place] [address] Transcribed By: [facility] 03/10/231837 Dictated By: Geovanni Marquez DO 03/10/231836 Signed By: 03/10/231837 Normal [facility] XR ankle BI [facility]V [facility] [place] [address] XRay Report Signed Patient: Akosua Arnold MR#: [id number] : 1975 Acct:[id number] Age/Sex: 47 / F ADM Date: 03/10/23 Loc: ER Room: Type: [facility] ER Attending Dr: Copies to: Seun [...] Geovanni Marquez M.D.03/10/2023 6:38 PM Dictation Location: [place] [address] Transcribed By: [facility] 03/10/231837 Dictated By: Geovanni Marquez DO 03/10/231836 Signed By: 03/10/231837 [facility] MG MAMM SCREEN 3D GUNJAN CADon 10-26-2022 MG MAMM SCREEN 3D GUNJAN CAD Patient: AKOSUA ARNOLD Exam Date: 10/26/2022 : 1975 Gender:F Ordering : DR KALYAN MENDOZA . Admission #: [id number] Family : Order #: [id number] CLICK HERE TO VIEW EXAM RADIOLOGY REPORT [...] lung cancer at age 51. LOCATION: [facility] BREAST COMPOSITION: Heterogeneously dense,which may obscure small [...] MD on 10/26/2022 at 08:49 Normal [facility] CHLAMYDIA/GONOCOCCUS MELANIE (SW AB/URINE/PAPon 09-12-2022 Chlamydia trachomatis, MELANIE Negative Normal Negative [facility] Comment on above: Performed By: #### C T/NGNA #### [facility] [address] [place], [place] [address] Dr. Kevin Mena Neisseria gonorrhoeae, MELANIE Negative Normal Negative [facility] Comment on above: Performed By: #### C T/NGNA #### [facility] [address] [place], [place] [address] Dr. Kevin Mena Glucose, Fastingon 3 Glucose [Mass/Vol] 95 mg/dL Normal 70-99 [facility] Comment on above: Performed By: #### G LUF, ZFAST #### [facility] [address] [place] [address] [employer] Instructor: Dagoberto Armas MD #### LIPR #### [facility] [address] [place] [address] [employer] Instructor: Shun Sheehan MD Glucose [Mass/Vol] 95 mg/dL 70 - 99 mg/dL [facility] Lipid Panelon 08-25-2022 Cholesterol [Mass/Vol] 173 mg/dL NINF - 200 mg/dL [facility] Comment on above: Cholesterol Guidelines: <200 Desirable 200-240 Borderline >240 Undesirable Cholesterol in HDL [Mass/Vol] 52 mg/dL 40 - PINF mg/dL [facility] Comment on above: HDL Guidelines: <40 Undesirable 40-59 Borderline >59 Desirable Cholesterol in LDL [Mass/Vol] 107 mg/dL 0 - 130 mg/dL [facility] Comment on above: LDL Guidelines: <100 Desirable 100-129 Near to/above Desirable 130-159 Borderline >159 Undesirable Direct (measured) LDL and calculated LDL are not interchangeable tests. Cholesterol.total/Christy sterol in HDL [Mass ratio] 3.3 {ratio} NINF - 5 [facility] Triglyceride [Mass/Vol] 68 mg/dL NINF - 150 mg/dL [facility] Comment on above: Triglyceride Guidelines: <150 Desirable 150-199 Borderline 200-499 High >499 Very high Based on AHA Guidelines for fasting triglyceride, May 2012. [facility] Lipid Profileon 08-25-2022 Cholesterol [Mass/Vol] 173 mg/dL Normal <200 [facility] Comment on above: Result Comment: Cholesterol Guidelines: <200 Desirable 200-240 Borderline >240 Undesirable Performed By: #### NICHOLAS CADENAAST #### [facility] [address] [place], [place] [phone] [employer] Instructor: Dagoberto Armas MD #### LIPR #### [address] [phone] [employer] Instructor: Shun Sheehan MD Cholesterol in HDL [Mass/Vol] 52 mg/dL Normal >40 [facility] Comment on above: Result Comment: HDL Guidelines: <40 Undesirable 40-59 Borderline >59 Desirable Performed By: #### PILAR CADENA #### [facility] [address] [place], [place] [phone] [employer] Instructor: Dagoberto Armas MD #### LIPR #### [address] [phone] [employer] Instructor: Shun Sheehan MD Cholesterol in LDL [Mass/Vol] 107 mg/dL Normal 0-130 [facility] Comment on above: Result Comment: LDL Guidelines: <100 Desirable 100-129 Near to/above Desirable 130-159 Borderline >159 Undesirable Direct (measured) LDL and calculated LDL are not interchangeable tests. Performed By: #### PILAR CADENA #### [facility] [address] [place], [place] [phone] [employer] Instructor: Dagoberto Armas MD #### LIPR #### [address] [phone] [employer] Instructor: Shun Sheehan MD Cholesterol.total/Christy sterol in HDL [Mass ratio] 3.3 {ratio} Normal <5 [facility] Comment on above: Performed By: #### PILAR CADENA #### [facility] [address] [place], [place] [phone] [employer] Instructor: Dagoberto Armas MD #### LIPR #### [facility] [address] [place], [place] [phone] [employer] Instructor: Shun Sheehan MD Triglyceride [Mass/Vol] 68 mg/dL Normal <150 M [facility] Comment on above: Result Comment: Triglyceride Guidelines: <150 Desirable 150-199 Borderline 200-499 High >499 Very high Based on AHA Guidelines for fasting triglyceride, May 2012. Performed By: #### PILAR CADENA #### [facility] [address] [place], [place] [phone] [employer] Instructor: Dagoberto Armas MD #### LIPR #### [facility] [address] [place], [place] [phone] [employer] Instructor: Shun Sheehan MD Patient Fasting?on 3 Patient Fasting? yes [facility] Patient fasting?on 3 Patient fasting? yes [facility] Comment on above: Performed By: #### PILAR CADENA #### [facility] [address] [place], [place] [phone] [employer] Instructor: Dagoberto Armas MD #### LIPR #### [address] [phone] [employer] Instructor: Shun Sheehan MD PAP ACOG PANEL 2: 30 to 65on 08-11-2022 . . [facility] Comment on above: Result Comment: Perf ormed at: BA Performed By: #### 4 [id number] #### [facility] [address] [place], [place] [address] Dr. Kevin Mena Age Gdln ACOG Testing 30-65 [facility] Comment on above: Performed By: #### 4 [id number] #### [facility] [address] [place] [address] [address] Kevin Mena DIAGNOSIS: Comment Normal [facility] Comment on above: Result Comment: NEGA TIVE FOR INTRAEPITHELIAL LESION OR MALIGNANCY. Performed at: BA Performed By: #### 4 [id number] #### [facility] [address] [place] [address] [address] Kevin Mena HPV Aptima Negative Normal Negative [facility] Comment on above: Result Comment: This nucleic acid amplification test detects fourteen high-risk HPV types (16,18,31,33,35,39,45,51,52,56,58,59,66,68) without differentiation. Performed at: =G Performed By: #### 4 [id number] #### [facility] [address] [place] [address] Dr. Kevin Mena HPV Genotype Reflex Comment Normal [facility] Comment on above: Result Comment: Crit eria not met, HPV Genotype not performed. Performed at: BA Performed By: #### 4 [id number] #### [facility] [address] [place] [address] Dr. Kevin Mena Methodology: Comment Normal [facility] Comment on above: Result Comment: This liquid based ThinPrep(R) pap test was screened with the use of an image guided system. Performed at: WB Performed By: #### 4 [id number] #### [facility] [address] [place] [address] Dr. Kevin Mena Note: Comment Normal [facility] Comment on above: Result Comment: The Pap smear is a screening test designed to aid in the detection of premalignant and malignant conditions of the uterine cervix. It is not a diagnostic procedure and should not be used as the sole means of detecting cervical cancer. Both false-positive and false-negative reports do occur. . Performed at: WB Performed By: #### 4 [id number] #### [facility] [address] [place] [address] Dr. Kevin Mena Performed by: Comment Normal [facility] Comment on above: Result Comment: Drea Limon, Cigarette Paper Tester (ASCP) Performed at: BA Performed By: #### 4 [id number] #### [facility] [address] [place] [address] Dr. Kevin Mena Specimen adequacy: Comment Normal [facility] Comment on above: Result Comment: Sati sfactory for evaluation. No endocervical component is identified. Performed at: BA Performed By: #### 4 [id number] #### [facility] [address] [place] [address] Dr. Kevin Mena CHLAMYDIA/GONOCOCCUS MELANIE ( AB/URINE/PAPon 08-06-2022 Chlamydia trachomatis, MELANIE Positive Abnormal Negative [facility] Comment on above: Result Comment: . Performed By: #### C T/NGNA #### [facility] [address] [place] [address] Dr. Kevin Mena Neisseria gonorrhoeae, MELANIE Negative Normal Negative [facility] Comment on above: Performed By: #### C T/NGNA #### [facility] [address] [place] [address] Dr. Kevin Mena VAGINITIS/VAGINOSIS DNA PROB Deng 08-05-2022 Vijaya species Negative Normal Negative [facility] Comment on above: Performed By: #### V AGINT #### [facility] [address] [place] [address] Dr. Kevin Mnea Gardnerella vaginalis Negative Normal Negative [facility] Comment on above: Performed By: #### V AGINT #### [facility] [address] [place] [address] Dr. Kevin Mena Trichomonas vaginalis Negative Normal Negative [facility] Comment on above: Performed By: #### V AGINT #### [facility] [address] [place] [address] Dr. Kevin Mena Microscopic Urinalysison - [facility] Bacteria, UA RARE Abnormal None [facility] HeTexted Epithelial Cells UA 20 TO 50 /HPF [facility] Interpretation and review of laboratory results Abnormal [facility] Mucus, UA 1+ Abnormal None [facility] RBC, UA 2 TO 5 [facility] WBC, UA 5 TO 10 0 /HPF [facility] UA w/Reflex Cultureon 2021 Bilirubin, SemiQt,Ur Negative Normal NEG [facility] Comment on above: Performed By: #### U MICAO, UAX #### [facility] [address] [place], [place] [phone] [employer] Office Instructor: Dagoberto Armas MD Blood, Urine TRACE Abnormal NEG [facility] Comment on above: Performed By: #### U MICAO, UAX #### [facility] [address] [place], [place] [phone] [employer] Instructor: Dagoberto Armas MD Clarity (U) Clear Normal CLEAR [facility] Comment on above: Performed By: #### U MICAO, UAX #### [facility] [address] [place], [place] [phone] [employer] Office Instructor: Dagoberto Armas MD Color (U) Yellow Normal YEL [facility] Comment on above: Performed By: #### U MICAO, UAX #### [facility] [address] [place], [place] [phone] [employer] Office Instructor: Dagoberto Armas MD Comment Normal [facility] Comment on above: Performed By: #### U MICAO, UAX #### [facility] [address] [place], [place] [phone] [employer] Instructor: Dagoberto Armas MD Glucose Ql (U) Negative Normal NEG [facility] Comment on above: Performed By: #### U MICAO, UAX #### [facility] [address] [place], [place] [phone] [employer] Office Instructor: Dagoberto Armas MD Ketones Ql (U) Negative Normal NEG [facility] Comment on above: Performed By: #### U MICAO, UAX #### [facility] [address] [place], [place] [phone] [employer] Instructor: Dagoberto Armas MD Leukocyte esterase Test strip Ql (U) 1+ Abnormal NEG [facility] Comment on above: Performed By: #### U MICAO, UAX #### [facility] [address] [place], [place] [phone] [employer] Office Instructor: Dagoberto Armas MD Nitrite,Ur Negative Normal NEG [facility] Comment on above: Performed By: #### U MICAO, UAX #### [facility] [address] [place] [address] [employer] Instructor: Dagoberto Armas MD PH,Ur 6.0 Normal 5.0-8.0 [facility] Comment on above: Performed By: #### U MICAO, UAX #### [facility] [address] [place] [address] [employer] Office Instructor: Dagoberto Armas MD Protein Ql (U) TRACE Abnormal NEG [facility] Comment on above: Performed By: #### U MICAO, UAX #### [facility] [address] [place] [address] [employer] Instructor: Dagoberto Armas MD Spec. Jewett,Ur 1.020 Normal 1.005-1.030 [facility] Comment on above: Performed By: #### U MICAO, UAX #### [facility] [address] [place] [phone] [employer] Office Instructor: Dagoberto Armas MD Urobilinogen,Ur Normal Normal NORM [facility] Comment on above: Performed By: #### U MICAO, UAX #### [facility] [address] [place] [phone] [employer] Instructor: Dagoberto Armas MD Urinalysis with Reflex to Cu ltureon 05-16-2022 Bilirubin Urine Negative NEGATIVE [facility] Color, UA Yellow Yellow [facility] Glucose, Ur Negative NEGATIVE [facility] Interpretation and review of laboratory results Abnormal [facility] Ketones Ql (U) Negative NEGATIVE [facility] Leukocyte esterase Test strip Ql (U) 1+ Abnormal NEGATIVE [facility] Nitrite, Urine Negative NEGATIVE [facility] pH, UA 6.0 5 - 8 [facility] Protein, UA TRACE Abnormal NEGATIVE [facility] Specific Jewett, UA 1.020 1.005 - 1.03 [facility] Turbidity UA Clear Clear [facility] Urinalysis Comments [facility] Urine Hgb TRACE Abnormal NEGATIVE [facility] Urobilinogen, Urine Normal Normal [facility] Urinalysis,Microon 2 ----- Normal [facility] Comment on above: Performed By: #### U MICAO, UAX #### [facility] [address] [place] [phone] [employer] Instructor: Dagoberto Armas MD Bacteria RARE Abnormal [facility] Comment on above: Performed By: #### U MICAO, UAX #### [facility] [address] [place] [phone] [employer] Instructor: Dagoberto Armas MD Epithelial cells LM Ql (Urine sed) 20 TO 50 Normal [facility] Comment on above: Performed By: #### U MICAO, UAX #### [facility] [address] [place] [phone] [employer] Instructor: Dagoberto Armas MD Mucus Strands 1+ Abnormal [facility] Comment on above: Performed By: #### U MICAO, UAX #### [facility] [address] [place] [phone] [employer] Instructor: Dagoberto Armas MD Urine RBC's 2 TO 5 Normal 0-2 [facility] Comment on above: Performed By: #### U MICAO, UAX #### [facility] [address] [place] [phone] [employer] Instructor: Dagoberto Armas MD Urine WBC's 5 TO 10 Normal 0 [facility] Comment on above: Performed By: #### U MICAO, UAX #### [facility] [address] [place] [address] [employer] Instructor: Dagoberto Armas MD T. pallidum AbOrdered By: Johan Fontanez on 01-20-2021 T. pallidum, IgG Non-Reactive NONREACTIVE [facility] Work Phone: Comment on above: T. pallidum antibodies are not detected. There is no serological evidence of infection with T. pallidum (early primary syphilis cannot be excluded). Retest in 2-4 weeks if syphilis is clinically suspect. [facility] [employer] Work Phone: CBC Auto DifferentialOrdered By: Eden Fontanez on 11-23-2020 [employer] # 0.20 [facility] Work Phone: Absolute Immature Granulocyte NOT REPORTED [facility] Work Phone: Absolute Lymph # 2.10 [facility] Work Phone: Absolute [place] # 0.40 [facility] Work Phone: Basophils (Bld) [#/Vol] 0.00 10*3/uL [facility] Work Phone: Basophils/100 WBC (Bld) 1 % 0 - 2 % [facility] Work Phone: Differential Type YES [facility] [employer] Work Phone: Eosinophils/100 WBC (Bld) 2 % 0 - 5 % [facility] Work Phone: Hematocrit (Bld) [Volume fraction] 39.1 % 36 - 46 % [facility] Work Phone: Hemoglobin.gastrointest inal spec 1 Ql (Stl) 13.2 g/dL 12.0 - 16.0 g/dL [facility] [employer] Work Phone: Immature Granulocytes NOT REPORTED 0 % M [employer] Phone: Lymphocytes/100 WBC (Bld) 29 % 15 - 40 % [employer] Phone: MCH (RBC) [Entitic mass] 32.5 pg 26 - 34 pg [employer] Phone: MCHC (RBC) [Mass/Vol] 33.8 g/dL 31 - 37 g/dL M [employer] Work Phone: MCV (RBC) [Entitic vol] 96.3 fL 80 - 100 fL [employer] Phone: Monocytes/100 WBC (Bld) 5 % 4 - 8 % M [employer] Phone: NRBC Automated NOT REPORTED per 100 WBC [employer] Work Phone: Platelet distribution width (Bld) [Ratio] 13.0 % 12.1 - 15.2 % [employer] Phone: Platelet Estimate NOT REPORTED [employer] Phone: Platelet mean volume (Bld) [Entitic vol] NOT REPORTED 6.0 - 12.0 fL [employer] Phone: Platelets (Bld) [#/Vol] 282 10*3/uL [employer] Phone: RBC (Bld) [#/Vol] 4.06 10*6/uL 4.0 - 5.2 m/uL M [employer] Work Phone: RBC (Bld) [#/Vol] NOT REPORTED [employer] Phone: Segmented neutrophils/100 WBC (Bld) 63 % 47 - 75 % [employer] Phone: Segs Absolute 4.80 [employer] Work Phone: WBC (Bld) [#/Vol] 7.5 10*3/uL [employer] Phone: WBC (Bld) [#/Vol] NOT REPORTED [employer] Phone: Comprehensive Metabolic Pane lOrdered By: Eden Fontanez on 11-23-2020 Albumin [Mass/Vol] 4.2 g/dL 3.5 - 5.2 g/dL [facility] Phone: Albumin/Globulin Ratio NOT REPORTED [facility] Phone: ALP (Bld) [Catalytic activity/Vol] 74 U/L 35 - 104 U/L [employer] Phone: ALT [Catalytic activity/Vol] 17 U/L 5 - 33 U/L [employer] Phone: Anion gap [Moles/Vol] 8 mmol/L Low 9 - 17 mmol/L [employer] Phone: AST [Catalytic activity/Vol] 20 U/L <32 [facility] Phone: Bilirubin [Mass/Vol] 0.50 mg/dL 0.30 - 1.20 mg/dL [employer] Phone: Calcium [Mass/Vol] 9.6 mg/dL 8.6 - 10. 4 mg/dL [employer] Phone: Chloride [Moles/Vol] 104 mmol/L 98 - 107 mmol/L [employer] Phone: CO2 [Moles/Vol] 28 mmol/L 20 - 31 mmol/L [employer] Phone: Creatinine [Mass/Vol] 0.81 mg/dL 0.50 - 0.90 mg/dL [employer] Phone: Free PSA/Total PSA [Mass fraction] 6.8 g/dL 6.4 - 8.3 g/dL [employer] Phone: GFR >60 >60 mL/min [employer] Phone: GFR Non- >60 >60 mL/min [facility] Phone: GFR/1.73 sq M.predicted MDRD (S/P/Bld) [Vol rate/Area] [facility] Phone: Comment on above: Average GFR for 40-4 9 years old: 99 mL/min/1.73sq m Chronic Kidney Disease: <60 mL/min/1.73sq m Kidney failure: <15 mL/min/1.73sq m eGFR calculated using average adult body mass. Additional eGFR calculator available at: http://www.[employer]/BAASBOX_crcl_2012.htm GFR/1.73 sq M.predicted MDRD (S/P/Bld) [Vol rate/Area] NOT REPORTED [facility] Phone: Glucose [Mass/Vol] 89 mg/dL 70 - 99 mg/dL [facility] [employer] Phone: Interpretation and review of laboratory results Abnormal [facility] Phone: Potassium [Moles/Vol] 3.8 mmol/L 3.7 - 5.3 mmol/L [facility] Phone: Sodium [Moles/Vol] 140 mmol/L 135 - 144 mmol/L [facility] Phone: Urea nitrogen (BldV) [Mass/Vol] 16 mg/dL 6 - 20 mg/dL [facility] Phone: Urea nitrogen/Creatinine (Bld) [Mass ratio] 20 [facility] Phone: Lipid PanelOrdered By: Shari Fontanez on 11-23-2020 Cholesterol [Mass/Vol] 146 mg/dL <200 [facility] Phone: Comment on above: Cholesterol Guidelines: <200 Desirable 200-240 Borderline >240 Undesirable Cholesterol in HDL [Mass/Vol] 49 mg/dL >40 [facility] Phone: Comment on above: HDL Guidelines: <40 Undesirable 40-59 Borderline >59 Desirable Cholesterol in LDL [Mass/Vol] 80 mg/dL 0 - 130 mg/dL [employer] Phone: Comment on above: LDL Guidelines: <100 Desirable 100-129 Near to/above Desirable 130-159 Borderline >159 Undesirable Direct (measured) LDL and calculated LDL are not interchangeable tests. Cholesterol in VLDL [Mass/Vol] NOT REPORTED 1 - 30 mg/dL [employer] Phone: Cholesterol.total/Christy sterol in HDL [Mass ratio] 3 {ratio} <5 [facility] Phone: Triglyceride [Mass/Vol] 87 mg/dL <150 [employer] Phone: Comment on above: Triglyceride Guidelines: <150 Desirable 150-199 Borderline 200-499 High >499 Very high Based on AHA Guidelines for fasting triglyceride, May 2012. Patient Fasting?Ordered By: Eden Fontanez on 11-23-2020 Patient Fasting? yes [employer] Work Phone: TSH with ReflexOrdered By: Etelvina Fontanez on 11-23-2020 TSH Qn 2.53 m[IU]/L [employer] Phone: Coding Summary.on 07-04-2020 Coding Summary. CODING DATE: 07/04/2020 [facility] STATUS: Home (Routine DC) PAYOR: [facility] [place] ADMIT DX: REASON FOR VISIT DX: Z01.419 [...] Adam Date Saved: 07/04/2020 06:52 am Normal [facility] Physician Orderon 06-18-2020 Physician Order [id number] 2#1.00CD:127 Normal [facility] Vital Signs Date Time Vital Sign Value Performing Clinician Michael guzmán 08-26-2024 10:26-0500 Body height 161.9 cm Sonja COATS Work Phone: [facility] 08-26-2024 10:26-0500 Body mass index (BMI) [Ratio] 30.27 kg/m2 Sonja COATS Work Phone: [facility] 08-26-2024 10:26-0500 Body weight 79.38 kg Sonja COATS Work Phone: [facility] 08-26-2024 10:26-0500 Diastolic blood pressure 70 mm[Hg] Sonja COATS Work Phone: [facility] 08-26-2024 10:26-0500 Systolic blood pressure 104 mm[Hg] Sonja COATS Work Phone: [facility] Encounters Encounter Date Encounter Type Care Provider Facility Start: 08-26-2024 End: 08-26-2024 Bamboo flowsheet Sonja COATS Work Phone: [facility] Start: 08-26-2024 End: 08-26-2024 Bamboo flowsheet Sonja COATS Work Phone: [facility] Start: 08-26-2024 End: 08-26-2024 Patient encounter procedure Sonja COATS Work Phone: [facility] Work Phone: Start: 08-26-2024 End: 08-26-2024 Periodic preventive med est patient 40-64yrs Sonja COATS Work Phone: [facility] Comment on above: Well woman exam with routine gynecological exam; Breast cancer screening by mammogram; Encounter for weight management Start: 12-11-2023 End: 12-11-2023 ambulatory SONJA RANDALL Not Available Start: 09-11-2023 End: 09-11-2023 ambulatory SONJA RANDALL Not Available Start: 08-14-2023 End: 08-14-2023 ambulatory SONJA RANDALL Not Available Start: 07-17-2023 End: 07-17-2023 ambulatory SONJA RANDALL Not Available Start: 06-19-2023 End: 06-19-2023 ambulatory KALYAN MENDOZA Not Available Start: 04-03-2023 Chart abstracting Hilda Barreto NP Work Phone: [facility] Start: 03-10-2023 End: 03-10-2023 Emergency department patient visit Seun Hendrix Facility:[facility] Start: 10-26-2022 End: 10-27-[address] KALYAN MENDOZA . Facility:[facility] Start: 09-08-2022 End: 09-08-2022 ambulatory SONJA RANDALL . Facility: Start: 08-25-2022 End: 08-26-2022 ambulatory [facility] Start: 08-25-2022 End: 08-25-2022 Subsequent hospital visit by physician Eden Fontanez DO Work Phone: [facility] Comment on above: Screening for diabet es mellitus; Screening for cardiovascular condition Start: 08-03-2022 End: 08-03-[address] KALYAN MENDOZA . Facility: Start: 05-16-2022 End: 05-17-2022 ambulatory [facility] Start: 05-16-2022 End: 05-16-2022 Subsequent hospital visit by physician Eden Fontanez DO Work Phone: [facility] Comment on above: Dysuria Start: 01-19-2021 End: 01-19-2021 Subsequent hospital visit by physician Eden Fontanez DO Work Phone: [facility] Start: 11-23-2020 End: 11-23-2020 Subsequent hospital visit by physician Eden Fontanez DO Work Phone: [facility] Comment on above: Lymphadenopathy; Screening for cardiovascular condition; Palpitation Procedures Date Procedure Procedure Detail Performing Clinician Start: 11-14-2023 Mammography Sonja COATS Work Phone: Start: 08-14-2023 Microscopic observat ion [Identifier] in Cervix by Cyto stain Sonja COATS Work Phone: Start: 10-26-2022 Mammography Hilda Barreto [employer] Work Phone: Start: 08-25-[address] gtt 3 specimens Eden Fontanez DO Work Phone: Start: 08-25-2022 Lipid panel Eden Fontanez DO Work Phone: Start: 08-25-2022 PATIENT FASTING? Gutierrez Fontanez DO Work Phone: Start: 05-16-2022 Urinalysis microscopic only Eden Fontanez DO Work Phone: Start: 05-16-2022 Urnls dip stick/tabl et rgnt auto w/o microscopy Eden Fontanez DO Work Phone: Start: 01-19-2021 T. PALLIDUM AB Eden Fontanez DO Work Phone: Start: 11-23-2020 Comprehensive metabo lic panel Eden Fontanez DO Work Phone: Start: 11-23-2020 Lipid panel Eden Fontanez DO Work Phone: Start: 11-23-2020 PATIENT FASTING? Gutierrez Fontanez DO Work Phone: Plan of Treatment Date Care Activity Detail Author Start: 08-14-2026 Screening for malignant neoplasm of cervix [facility] Start: 11-23-2025 Lipid panel [facility] Start: 11-18-2024 End: 11-18-2024 Patient encounter procedure 11/18/2024 4:00 PM EDT Office Visit [facility] [address] [place] [address] Sonja Randall PA [address] [place] [address] [facility] Start: 11-13-2024 Screening for malignant neoplasm of breast Mammogram [facility] Start: 08-26-2024 End: 10-24-2025 MG Breast - bilateral Screening Bilateral screening mammogram Imaging Routine Breast cancer screening by mammogram Expected: 08/26/2024 (Approximate), Expires: 10/24/2025 [facility] Work Phone: Comment on above: Expected: 08/26/2024 (Approximate), Expires: 10/24/2025 Start: 08-26-2024 End: 08-26-2024 Patient encounter procedure 08/26/2024 10:00 AM EST Office Visit [facility] [address] [place] [address] Sonja Randall PA [address] [place] [address] [place], [place] [id number] [facility] Start: 04-07-2024 Influenza vaccination Influenza Vacc ine (#1) [facility] Start: 10-27-2023 Screening for malignant neoplasm of breast Mammogram [facility] Start: 10-26-2023 DTaP/Tdap/Td vaccine (2 - Td or Tdap) DTaP/Tdap/Td vaccine (2 - Td or Tdap) [facility] Start: 09-13-2023 End: 09-13-2023 Patient encounter procedure 09/13/2023 4:00 PM EST Office Visit [facility] [address] [place] [id number] Hilda Barreto NP [address] [place] [address] [facility] Start: 09-11-2023 End: 09-11-2023 Patient encounter procedure 09/11/2023 3:30 PM EST Office Visit [facility] [address] [place] [phone] Sonja Randall PA [address] [place], [place] [id number] [facility] Start: 08-23-2023 Depression Screen Depression Screen [facility] Start: 08-23-2023 Influenza vaccination Flu vaccine (# 1) [facility] Comment on above: Postponed from 03/07 (Patient Refused) Start: 04-07-2023 Influenza vaccination Influenza Vacc ine (#1) [facility] Start: 03-07-2022 Influenza vaccination Flu vaccine (# 1) [facility] Start: 11-20-2021 Depression Screen Depression Screen [facility] Start: 04-07-2021 Influenza vaccination Flu vacc ine (Season Ended) [facility] Phone: Start: 12-30-2020 Screening for malignant neoplasm of colon [facility] Start: 12-30-2005 Screening for malignant neoplasm of cervix [facility] Start: 12-30-1996 Screening for malignant neoplasm of cervix [facility] Start: 12-30-1994 DTaP/Tdap/Td vaccine (1 - Tdap) DTaP/Tdap/Td vaccine (1 - Tdap) [facility] Phone: Start: 12-30-1993 Hepatitis C screening [facility] Start: 1991 COVID-19 Vaccine (1) COVID-19 Vaccin e (1) [employer] Phone: Start: 12-30-1990 HIV screening HIV screen [facility] [place] [facility] [employer] Start: 1987 COVID-19 Vaccine (1) COVID-19 Vaccin e (1) [employer] Phone: Start: 07-02-1976 COVID-19 Vaccine (#1) COVID-19 Vacci ne (#1) [facility] Start: 1975 Hepatitis C screening [facility]atitis C [facility]: Start: 1975 Screening for malignant neoplasm of colon [facility] THIN PREP TIS PAP AN D HR HPV DNA THIN PREP TIS PAP AND HR HPV DNA Pathology and Cytology Routine Well woman exam with routine gynecological exam Ordered: 08/26/20[address] [place] [address] Comment on above: Ordered: 08/26/2024 Immunizations Immunization Date Immunization Notes Care Provider Nichole isidro 10-08-2021 hepatitis A vaccine, adult dosage Eden Yonley DO Work Phone: [employer] Work Phone: 02-19-2021 hepatitis A vaccine, adult dosage Eden Yonley DO Work Phone: [employer] Work Phone: 06-06-2014 hepatitis B vaccine, adult dosage Eden Yonley DO Work Phone: [employer] Work Phone: 12-02-2013 hepatitis B vaccine, adult dosage Eden Yonley DO Work Phone: [employer] Work Phone: 10-25-2013 hepatitis B vaccine, adult dosage Eden Yonley DO Work Phone: [employer] Work Phone: 10-25-2013 tetanus toxoid, redu adonis diphtheria toxoid, and acellular pertussis vaccine, adsorbed Eden Jdnley DO Work Phone: [employer] Work Phone: Payers Date Payer Category Payer Self-pay 2022 Private Health Insurance [employer] [id number] 2022 Unknown [employer] [id number] 2022-Present [address] [place] [address] [id number] 2021 Private Health Insurance [id number] 2019 Unknown BCBS [place] - [place] P PO [id number] 2019-Present [address] [place] [address] [id number] 1975 Unknown [id number] [id number]. 174 1975 Unknown [id number] 2.16.840.1.382336.3.579.2. 174 1975 Unknown [id number] 2.16.840.1.833050.3.579.2. 593 1975 Unknown [id number] 2.16.840.1.342109.3.579.2. 593 1975 Unknown [id number] 2.16.840.1.831742.3.579.2. 593 1975 Unknown [id number] 2.16.840.1.806050.3.579.2. 593 1975 Unknown [id number] 2.16.840.1.858462.3.579.2. 1259 1975 Unknown [id number] 2.16.840.1.527227.3.579.2. 1259 1975 Unknown [id number] 2.16.840.1.365966.3.579.2. 1259 1975 Unknown [id number] 2.16.840.1.924867.3.579.2. 1259 1975 Unknown [id number] 2.16.840.1.195179.3.579.2. 1259 1959 Unknown [id number]. [id number] Unknown [id number] [id number]. 531 Unknown [id number] [id number]. 531 Social History Date Type Detail Facility Start: 11-20-2020 End: 01-30-2023 Tobacco smoking status KSIS Never smoker [employer] Phone: Start: 11-20-2020 End: 01-30-2023 Tobacco use and exposure Never used [employer] Start: 11-20-2020 End: 08-24-2022 Alcohol intake Current non-drinker of alcohol (finding) [employer] Phone: Start: 11-20-2020 End: 08-23-2022 History SDOH Financial 5 [employer] Phone: Start: 11-20-2020 End: 08-23-2022 History SDOH Food Worry 1 [employer] Phone: Start: 1975 Sex Assigned At Not on file [employer] Phone: Start: 04-03-2023 End: 08-26-2024 Alcohol intake Defer [facility] Start: 01-30-2023 End: 09-06-2023 [facility] of Social function [facility] Start: 01-30-2023 End: 09-06-2023 Humiliation, Afraid, Rape, and Kick questionnaire [HARK] [facility] Within the last year , have you been afraid of your partner or ex-partner? No [facility] Do you belong to any clubs or organizations such as anglican groups, unions, fraternal or athletic groups, or [...] or from getting medications? No [facility] History of Present illness Narrative 08-26-2024 JORGE L Nair - 08/26/2024 10:00 AM EST Note Date & Type Note Facility 08-26-2024 History of Presen t illness Narrative Reason for Appointment: Patient ID: Akosua Arnold is a 48 y.o. female who presents for Well Women Visit Patient presents today for Annual Exam. MEDICATIONS Current Outpatient Medications Medication Instructions ergocalciferol (VITAMIN D-2) 1.25 mg, Oral, Weekly Levonorgestrel (Mirena, 52 MG,) 20 MCG/DAY intrauterine device Mirena MULTIPLE VITAMINS ESSENTIAL PO Multiple Vitamins vitamin C 250 mg, Oral, Daily ALLERGIES Allergies Allergen Reactions Sulfamethoxazole-Trimethoprim Unknown Amoxicillin Rash and Unknown Sulfa Antibiotics Rash PROBLEMS Active Ambulatory Problems Diagnosis Date Noted Chlamydia 01/30/2023 Essential tremor 08/24/2022 Encounter for weight management 09/06/2023 Resolved Ambulatory Problems Diagnosis Date Noted No Resolved Ambulatory Problems Past Medical History: Diagnosis Date Family history of basal cell carcinoma HISTORY PAST MEDICAL HISTORY SOCIAL HISTORY Past Medical History: Diagnosis Date Family history of basal cell carcinoma Social History Tobacco Use Smoking status: Never Smokeless tobacco: Never Vaping Use Vaping status: Never Used Substance Use Topics Alcohol use: Defer Drug use: Defer FAMILY HISTORY Family History Family history unknown: Yes SURGICAL HISTORY History reviewed. No pertinent surgical history. REVIEW OF SYSTEMS Review of Systems: Review of Systems Constitutional: Negative. HENT: Negative. Eyes: Negative. Respiratory: Negative. Cardiovascular: Negative. Gastrointestinal: Negative. Genitourinary: Negative. Musculoskeletal: Negative. Skin: Negative. Neurological: Negative. All other systems reviewed and are negative. Hematological: Negative. Endocrine: Negative. Allergic/Immunologic: Negative. OBJECTIVE Objective: Physical Exam Constitutional: Appearance: Normal appearance. She is well-developed. Genitourinary: Vulva normal. Right Adnexa: not tender and no mass present. Left Adnexa: not tender and no mass present. No cervical discharge. Breasts: Breasts are soft. Right: Normal. Left: Normal. HENT: Head: Normocephalic. Nose: Nose normal. Mouth/Throat: Mouth: Mucous membranes are moist. Cardiovascular: Rate and Rhythm: Normal rate and regular rhythm. Pulmonary: Effort: Pulmonary effort is normal. Breath sounds: Normal breath sounds. Abdominal: General: Bowel sounds are normal. There is no distension. Palpations: Abdomen is soft. Tenderness: There is no abdominal tenderness. There is no guarding or rebound. Musculoskeletal: General: No swelling. Normal range of motion. Cervical back: Normal range of motion. Right lower leg: No edema. Left lower leg: No edema. Neurological: General: No focal deficit present. Mental Status: She is alert and oriented to person, place, and time. Skin: General: Skin is warm and dry. Psychiatric: Mood and Affect: Mood normal. Behavior: Behavior normal. Vitals and nursing note reviewed. Exam conducted with a clerical assigner present. Vitals: Estimated body mass index is 29.78 kg/m as calculated from the following: Height as of 06/19/23: 5' 3 . Weight as of this encounter: 168 lb 1.9 oz. BP: 104/70 No LMP recorded. Patient has had an implant. ASSESSMENT & PLAN ICD-10-CM 1. Well woman exam with routine gynecological exam Z01.419 THIN PREP TIS PAP AND HR HPV DNA 2. Breast cancer screening by mammogram Z12.31 Bilateral screening mammogram Bilateral screening mammogram Annual Exam: Patient presents today for an annual exam. Patient states she is doing well and has no complaints. Pap was obtained without difficulty. Orders Placed This Encounter Procedures Bilateral screening mammogram Patient wishes to restart adipex states she has slowly gained weight since being off over the summer. Patient will follow up in 3 months for weight and blood pressure check Follow Up: Patient is to return in one year for annual unless needed otherwise. Documented by Allie Jacobs LPN on behalf of: JORGE L Nair documented in this encounter [facility] Evaluation note Note Date & Type Note Facility Evaluation note Diagnosis Lymphadenopathy Enlargement of lymph nodes Screening for cardiovascular condition Screening for other and unspecified cardiovascular conditions Palpitation Palpitations documented in this encounter [employer] Phone: Evaluation note Note Date & Type Note Facility Evaluation note Diagnosis Dysuria documented in this encounter [facility] Phone: Evaluation note Note Date & Type Note Facility Evaluation note Diagnosis Screening for diabetes mellitus Screening for cardiovascular condition Screening for other and unspecified cardiovascular conditions documented in this encounter [facility] Phone: Evaluation note Note Date & Type Note Facility Evaluation note Diagnosis Well woman exam with routine gynecological exam Routine gynecological examination Breast cancer screening by mammogram Encounter for weight management documented in this encounter [facility] Summary Purpose Family History No Family History Records FoundNo Family History Records FoundNo Family History Records FoundNo Family History Records FoundNo Family History Records FoundNo Family History Records Found Advance Directives Documents on File Type Date Recorded Patient Four Slide Machine Operator Expl anation ACP-Advance Directive ACP-Power of Community Health Representative Additional Source Comments INFORMATION SOURCE (unrecogn ized section and content) DATE CREATED AUTHOR 07/04/2020 [facility] DATE CREATED AUTHOR AUTHOR'S ORGANIZ ATION 08/31/2022 [facility]y [facility] DATE CREATED AUTHOR AUTHOR'S ORGANIZ ATION 10/30/2022 [facility] DATE CREATED AUTHOR AUTHOR'S ORGANIZ ATION 03/11/2023 [facility] DATE CREATED AUTHOR AUTHOR'S ORGANIZ ATION 03/27/2023 [facility] DATE CREATED AUTHOR AUTHOR'S ORGANIZ ATION 12/12/2023 [facility] d[facility] Specialists [employer] Care Teams (unrecognized sec tion and content) Tag Writer Relationship Specialty Start Date End Date Eden Fontanez DO [address] [place] [address] PCP - General Family Medicine 04/30/18 Tag Writer Relationship Specialty Start Date End Date Eden Fontanez DO [address] [place] [phone] PCP - General Family Medicine 04/30/18 Tag Writer Relationship Specialty Start Date End Date Anil Madison DO [address] [place] [address] PCP - General Family Medicine 01/30/23 Hilda Barreto, [employer]TER [address] [place] [address] Nurse Practitioner Family Medicine 01/30/23 Tag Writer Relationship Specialty Start Date End Date Anil Madison DO [address] [place] [address] PCP - General Family Medicine 01/30/23 Hilda Barreto, [employer]TER [address] [place] [address] Nurse Practitioner Family Medicine 01/30/23 Tag Writer Relationship Specialty Start Date End Date Anil Madison DO [address] [place] [address] PCP - General Family Medicine 01/30/23 Hilda Barreto, [employer] S[employer]TER [address] [place] [address] Nurse Practitioner Family Medicine 01/30/23 Reason for Visit (unrecogniz ed section and content) Reason Comments Well Women Visit FOR RECORDS PERTAINING TO PATIENTS WHO ARE [...] BE BASED ON THE PRIMARY CLINICAL RECORDS. [facility] [employer] [facility]. provides no warranty or guarantee of the accuracy or completeness of information in this document.
== END 2024-08-26 21:57 | disposition home or self-care (01) ==
LOC: LAB 21:56
PROVIDERS: Visit Provider Physician Assistant
DX: Z01.419 Encounter for gynecological examination (general) (routine) without abnormal findings (principal)
CPT/HCPCS: 87624; 88175

== ENCOUNTER 2024-12-31 15:52 | Outpatient (OUT) | payer OTHER, SELFPAY ==
--- OUTSIDE RECORDS SUMMARY | 2024-12-31 15:53 | XMS_ITS | Encounter Summary ---
Author Organization [facility] Address [address] [place] [address] Care Team Providers Care Fig Bar Machine Operator Name Role Phone Anil Madison DO Primary Care Provider [phone] Hilda Barreto BOOKING PRIZER Unavailable Anil Madison DO Unavailable [phone] Encounter Details Date Type Department Care Team (Late st Contact Info) Description 09/06/2024 Orders Only [facility] [address] [facility] [place] [address] Shaneka Ku MA [address] [facility] [place] [address] Social History Tobacco Use Types Packs/Day Years Used Date Smoking Tobacco: Never Smokeless Tobacco: Never Alcohol Use Standard Drinks/Week Comments Defer 0 (1 standard drink = 0.6 oz pur e alcohol) Humiliation, Afraid, Rape, and Kick questionnair e Answer Date Recorded Within the last year, have y ou been afraid of your partner or ex-partner? No 09/06/2023 Within the last year, have y ou been humiliated or emotionally abused in other ways by your partner or ex-partner? No Within the last year, have y ou been kicked, hit, slapped, or otherwise physically hurt by your partner or ex-partner? No 09/06/2023 Within the last year, have y ou been raped or forced to have any kind of sexual activity by your partner or ex-partner? No 09/06/2023 Social Connection and Isolat ion Panel [NHANES] Answer Date Recorded In a typical week, how many times do you talk on the phone with family, friends, or neighbors? More than three times a week 09/06/2023 How often do you get togethe r with friends or relatives? Once a week 09/06/2023 How often do you attend chur ch or church services? More than 4 times per year 09/06/2023 Do you belong to any clubs o r organizations such as denominational groups, unions, fraternal or athletic groups, or school groups? Yes 09/06/2023 How often do you attend meet ings of the clubs or organizations you belong to? More than 4 times per year 09/06/2023 Are you , , di vorced, , never , or living with a partner? 09/06/2023 AUDIT-C Answer Date Recorded Q1: How often do you have a drink containing alc ohol? Monthly or less 09/06/2023 Q2: How many drinks containi ng alcohol do you have on a typical day when you are drinking? 1 or 2 09/06/2023 Q3: How often do you have si x or more drinks on one occasion? Never 09/06/2023 Overall Financial Resource Strain (CARDIA) Answe r Date Recorded How hard is it for you to pa y for the very basics like food, housing, medical care, and heating? Not very hard 09/06/2023 PHQ-2 Answer Date Recorded Patient Health Questionnaire-2 Score 0 01/30/2023 [facility] - Occupational Stress Questionnaire Answer Date Recorded Do you feel stress - tense, restless, nervous, or anxious, or unable to sleep at night because your mind is troubled all the time - these days? Only a little 09/06/2023 Exercise Vital Sign Answer Date Recorde d On average, how many days pe r week do you engage in moderate to strenuous exercise (like a brisk walk)? 5 days 09/06/2023 On average, how many minutes do you engage in exercise at this level? 60 min 09/06/2023 Hunger Vital Sign Answer Date Recorded Within the past 12 months, y ou worried that your food would run out before you got the money to buy more. Never true 09/06/19 24 Within the past 12 months, t he food you bought just didn't last and you didn't have money to get more. Never true 09/06/2023 PRAPARE - Transportation Answer Date Re corded In the past 12 months, has l ack of transportation kept you from medical appointments or from getting medications? No 08/09 In the past 12 months, has l ack of transportation kept you from meetings, work, or from getting things needed for daily living? No 09/06/2023 Housing Stability Vital Sign Answer Darrell e Recorded In the last 12 months, was t here a time when you were not able to pay the mortgage or rent on time? No 09/06/2023 In the last 12 months, how many places have you lived? 1 09/06/2023 In the last 12 months, was t here a time when you did not have a steady place to sleep or slept in a assisted (including now)? No 09/06/2023 Comments No Sex and Gender Information Value Date Recorded Sex Assigned at Not on file Legal Sex Female 8:28 PM EDT Gender Identity Not on file Sexual Orientation Not on file documented as of this encounter Plan of Treatment Not on file documented as of this encounter Procedures Procedure Name Priority Date/Time Associated Diagnosis Comments PAP SMEAR Routine 08/26/2024 12:00 AM EST documented in this encounter Results * Pap Smear (08/26/2024 12:00 AM EST) Swab Cervical swab / Unknown [facility] CYTOLOGY ORDERABLES Final Re sult [facility] documented in this encounter Visit Diagnoses Not on filedocumented in this encounter Care Teams Fig Bar Machine Operator Relationship Specialty Start Date End Date Anil Madison DO [address] [place] [address] [place] [address] PCP - General Family Medicine 01/30/23 Anil Madison DO [address] [place] [address] PCP - Medical [place] [employer] 07/04/22 08/06/99 Hilda Barreto NP [address] [address] Nurse Practitioner Family Medicine 01/30/23 documented as of this encounter
--- OUTSIDE RECORDS SUMMARY | 2024-12-31 15:53 | XMS_ITS | Encounter Summary ---
Author Organization [facility] Address [address] [place] [address] Care Team Providers Care Privacy Compliance Manager Name Role Phone Anil Madison DO Primary Care Provider [phone] Hilda Barreto PEN TENDER Unavailable Anil Madison DO Unavailable [phone] Encounter Details Date Type Department Care Team (Late st Contact Info) Description 01/27/2023 Abstract [facility] [address] [facility] [address] [place] [id number] Hilda Barreto, PEN TENDER [address] [facility] [address] [place] [address] Social History Tobacco Use Types Packs/Day Years Used Date Smoking Tobacco: Never Tobacco Cessation:Counseling Given: Not Answered Alcohol Use Standard Drinks/Week Comments Defer 0 (1 standard drink = 0.6 oz pur e alcohol) PHQ-2 Answer Date Recorded Patient Health Questionnaire-2 Score 0 01/30/2023 Comments Unknown Sex and Gender Information Value Date Recorded Sex Assigned at Not on file Legal Sex Female 8:28 PM EDT Gender Identity Not on file Sexual Orientation Not on file documented as of this encounter Functional Status * Over the past 2 weeks, how often have you been bothered by any of the following problems? Question Answer Date of Assessment Author Little interest or pleasure in doing things Not at all 01/30/2023 10:22 AM EDT Juan Davidson MA Feeling down, depressed, or hopeless Not at all 01/30/2023 10:22 AM CHARLEST Juan Davidson MA Patient Health Questionnaire -2 Score 0 01/30/2023 10:22 AM Juan Smith MA documented as of this encounter Plan of Treatment Not on file documented as of this encounter Visit Diagnoses Not on filedocumented in this encounter Care Teams Privacy Compliance Manager Relationship Specialty Start Date End Date Anil Madison DO [address] [facility] [address] [place] [address] PCP - General Family Medicine 01/30/23 Anil Madison DO [address] [facility] [address] [place] [address] PCP - Medical [place] [employer] 07/04/22 08/06/99 Hilda Barreto NP [address] [facility] [address] [place] [address] Nurse Practitioner Family Medicine 01/30/23 documented as of this encounter
--- OUTSIDE RECORDS SUMMARY | 2024-12-31 15:53 | XMS_ITS | Clinical Summary ---
Author Organization [facility] Address [address] [place] [address] Care Team Providers Care Superintendent Custodian Janitor Name Role Phone Elisa Roberts DO Primary Care Provider Allergies Active Allergy Reactions Criticality Noted Date Comments Amoxicillin Rash Low 09/10/2018 Sulfa Antibiotics Rash Low 09/10/2018 Medications No known medications Active Problems Problem Noted Date Diagnosed Date Essential tremor 08/24/2022 Resolved Problems Problem Noted Date Diagnosed Date Resolved Date Non morbid obesity due to excess calories 09/11/2018 11/23/2020 Immunizations Immunization Administration Dates Next Due Hep A, HAVRIX, VAQTA, (age 19y+), IM, 1mL 2021,02/19/2021 Hepatitis B 06/06/2014,12/02/2013,10/25/2013 TDaP, ADACEL (age 10y-64y), BOOSTRIX (age 10y+), IM, 0.5mL 10/25/2013 Family History Medical History Relation Name Comments Cancer Father Heart Disease Mother Hypothyroidism Mother Diabetes Paternal Grandfather Hypothyroidism Sister Relation Name Status Comments Father Mother Paternal Grandfather Sister Social History Tobacco Use Types Packs/Day Years Used Date Smoking Tobacco: Never Smokeless Tobacco: Never Tobacco Cessation:Counseling Given: Not Answered Alcohol Use Standard Drinks/Week Comments No 0 (1 standard drink = 0.6 oz pur e alcohol) Overall Financial Resource Strain (CARDIA) Answe r Date Recorded How hard is it for you to pa y for the very basics like food, housing, medical care, and heating? Not hard at all 08/23/2022 PHQ-2 Answer Date Recorded PHQ-9 Total Score 0 08/23/2022 Hunger Vital Sign Answer Date Recorded Within the past 12 months, y ou worried that your food would run out before you got the money to buy more. Never true 08/23/19 23 Within the past 12 months, t he food you bought just didn't last and you didn't have money to get more. Never true 08/23/2022 Food Insecurity Answer Date Recorded Within the past 12 months, y ou worried that your food would run out before you got the money to buy more. 1 08/23/2022 Within the past 12 months, t he food you bought just didn't last and you didn't have money to get more. 1 08/23/2022 Comments Unknown Sex and Gender Information Value Date Recorded Sex Assigned at Not on file Legal Sex Female 4:37 PM EST Gender Identity Not on file Sexual Orientation Not on file Last Filed Vital Signs Vital Sign Reading Time Taken Comments Blood Pressure 108/70 08/23/2022 3:49 PM EST Pulse 87 08/23/2022 3:49 PM EST Temperature 36.4 C (97.5 F) 02/15/2021 3:39 PM EDT Respiratory Rate - - Oxygen Saturation 99% 08/23/2022 3:49 PM EST Inhaled Oxygen Concentration - - Weight 75.3 kg (166 lb) 08/23/2022 3:49 PM EST Height 160 cm (5' 3 ) 08/23/2022 3:49 PM EST Body Mass Index 29.41 08/23/2022 3:49 PM EST Plan of Treatment Health Maintenance Due Date Last Done Comments Depression Screen 1987 HIV screen 12/30/1990 Hepatitis C screen 12/30/1993 Pap smear 12/30/1996 Cervical cancer screen 12/30/2005 HPV (without or with Pap) 12/30/2005 Colonoscopy 12/30/2020 Colorectal Cancer Screen 12/30/2020 FIT/FOBT: Average risk 12/30/2020 Fecal-DNA (Cologuard): Average risk 12/30/2020 Sigmoidoscopy/CT colonography 12/30/2020 Breast cancer screen 06/23/2022 06/23/2020 DTaP/Tdap/Td vaccine (2 - Td or Tdap) 10/26/2023 10/25/2013 COVID-19 Vaccine ( - 2023-2 5 season) 2024 Flu vaccine (Season Ended) 2025 Lipids 08/25/2027 08/25/2022, 11/23/2020 Hepatitis B vaccine Completed 06/06/2014, 12/02/2013, 10/25/2013 Hepatitis A vaccine Aged Out 10/08/2021, 02/19/2021 No longer eligible based on patient's age to complete this topic Diabetes screen Discontinued 08/25/2022 Hib vaccine Aged Out No longer eligi ble based on patient's age to complete this topic Meningococcal (ACWY) vaccine Aged Out No longer eligible based on patient's age to complete this topic Meningococcal B vaccine Aged Out No l onger eligible based on patient's age to complete this topic Pneumococcal 0-49 years Vaccine Aged Out No longer eligible based on patient's age to complete this topic Polio vaccine Aged Out No longer elig ible based on patient's age to complete this topic Procedures Procedure Name Priority Date/Time Associated Diagnosis Comments GLUCOSE, FASTING Routine 08/25/2022 9:36 AM EST Screening for diabetes mellitus LIPID PANEL Routine 08/25/2022 9:36 AM EST Screening for cardiovascular condition HM MAMMOGRAPHY Routine 06/23/2020 from Last 3 Months or Most Recently Relevant to Health Maintenance Results * Glucose, Fasting (08/25/2022 9:36 AM EST) Glucose, Fasting 95 70 - 99 mg/dL 08/25/2022 9:36 AM EST [facility] BLOOD SPECIMEN / Unknown 08/25/2022 9:36 AM EST 08/25/2022 9:37 AM EST us Elisa Roberts DO CHEMISTRY ORDERABLES Final R esult [facility] [address] [place] [place] [address], [facility] [phone] * Lipid Panel (08/25/2022 9:36 AM EST) Cholesterol 173 <200 mg/dL 08/25/2022 9:36 AM EST [facility] Comment: Cholesterol Guidelines: <200 Desirable 200-240 Borderline >240 Undesirable HDL 52 >40 mg/dL 08/25/2022 9:36 AM EST [facility] Comment: HDL Guidelines: <40 Undesirable 40-59 Borderline >59 Desirable LDL Cholesterol 107 0 - 130 mg/dL 08/25/2022 9:36 AM EST [facility] Comment: LDL Guidelines: <100 Desirable 100-129 Near to/above Desirable 130-159 Borderline >159 Undesirable Direct (measured) LDL and calculated LDL are not interchangeable tests. Chol/HDL Ratio 3.3 <5 08/25/2022 9:36 AM EST [facility] Comment: Triglycerides 68 <150 mg/dL 08/25/2022 9:36 AM EST [facility] Comment: Triglyceride Guidelines: <150 Desirable 150-199 Borderline 200-499 High >499 Very high Based on AHA Guidelines for fasting triglyceride, May 2012. BLOOD SPECIMEN / Unknown 08/25/2022 9:36 AM EST 08/25/2022 9:37 AM EST Elisa Roberts DO CHEMISTRY ORDERABLES Final R esult [facility] [address] [facility] [place] [address], [facility] [phone] [facility] [place] [id number] [place] [id number], [facility] [phone] * MAMMOGRAPHY (06/23/2020) Anatomical Region Laterality Modality Other Historical Provider HEALTH MAINTENANCE Final Result from Last 3 Months or Most Recently Relevant to Health Maintenance Insurance [employer] Care Teams Superintendent Custodian Janitor Relationship Specialty Start Date End Date Elisa Roberts DO [address] [place] [address] PCP - General Family Medicine 04/30/18
--- OUTSIDE RECORDS SUMMARY | 2024-12-31 15:53 | XMS_ITS | Encounter Summary ---
Author Organization [facility] Address [address] [place] [address] Care Team Providers Care Information Delivery Analyst Name Role Phone Anil Madison DO Primary Care Provider [phone] Hilda Barreto CARPENTRY SUPERVISOR Unavailable Anil Madison DO Unavailable [phone] Encounter Details Date Type Department Care Team (Late st Contact Info) Description 12/26/2024 Telephone [facility] OB [address] [facility] [place] [address] Allie Jacobs LPN [address] [place] [address] Social History Tobacco Use Types Packs/Day Years [...] 09/06/2023 How often do you attend chur or bahai services? More than 4 times per year 09/06/2023 Do you belong to any clubs o r organizations such as worship groups, unions, fraternal or athletic groups, or [...] Recorded Patient Health Questionnaire-2 Score 0 01/30/2023 [facility] - Occupational [...] place to sleep or slept in a fdc (including now)? No 09/06/2023 Comments No Sex and Gender Information Value Date Recorded Sex Assigned at Not on file Legal Sex Female 8:28 PM EDT Gender Identity Not on file Sexual Orientation Not on file documented as of this encounter Miscellaneous Notes * Telephone Encounter - Allie Jacobs LPN - 12/26/2024 9:56 AM EDT Pt called stating that she has a UTI and would like something called in for it. I told pt that I can do that for her. PVU documented in this encounter Plan of Treatment Not on file documented as of this encounter Visit Diagnoses Diagnosis UTI symptoms documented in this encounter Care Teams Information Delivery Analyst Relationship Specialty Start Date End Date Anil Madison DO [address] [place] [address] PCP - General Family Medicine 01/30/23 Anil Madison DO [address] [address] PCP - Medical [place] [employer] 07/04/22 08/06/99 Hilda Barreto NP [address] [facility] [address] [place] [address] Nurse Practitioner Family Medicine 01/30/23 documented as of this encounter
--- OUTSIDE RECORDS SUMMARY | 2024-12-31 15:53 | XMS_ITS | Clinical Summary ---
Author Organization [facility] Healthcare Address [address] [place] [address] Care Team Providers Care Product Development Chemist Name Role Phone Anil Madison DO Primary Care Provider [phone] Hilda Barreto AWNING CRAFTSPERSON Unavailable Anil Madison DO Unavailable [phone] Allergies Active Allergy Reactions Criticality Noted Date Comments Amoxicillin Rash,Unknown Low 09/10/2018 Sulfa Antibiotics Rash Low 09/10/2018 Sulfamethoxazole-Trimethoprim Unknown 2022 Medications Levonorgestrel (Mirena, 52 MG,) 20 MCG/DAY intrauterine device Mirena Active MULTIPLE VITAMINS ESSENTIAL PO Multiple Vitamins Active ergocalciferol (Vitamin D-2) 1.25 MG (55956 UT) capsule Take 1.25 mg by mouth 1 (one) time per week. Active Ascorbic Acid (vitamin C) 250 MG tablet Take 250 mg by mouth in the morning. Active phentermine (Adipex-P) 37.5 MG tabletIndications :Encounter for weight management Take 1 tablet (37.5 mg) by mouth in the morning. Take before meals. 90 tablet 5 Active ciprofloxacin (Cipro) 500 MG tabletIndications :Urinary Tract Infection Take 1 tablet (500 mg) by mouth in the morning and 1 tablet (500 mg) before bedtime. Do all this for 7 days. 14 tablet 5 01/03/20 25 Active Hospital, Clinic, or Other Facility Administered Medication Ordered Dose Route Frequency Start Date End Date Status Levonorgestrel intrauterine device 52 mgIndications:Encounter for removal and reinsertion of IUD 52 mg IU Continuous 05/22/2023 Active Active Problems Problem Noted Date Diagnosed Date Encounter for weight management 09/06/2023 Chlamydia 01/30/2023 Essential tremor 08/24/2022 Encounters Date Type Department Care Team Description 12/26/2024 Telephone [facility] [address] [address] Allie Jacobs LPN from Last 3 Months Immunizations Immunization Administration Dates Next Due Hep A, Adult 10/08/2021,02/19/2021 Hep B, adult 06/06/2014,12/02/2013,10/25/2013 Tdap 10/25/2013 Family History Relation Name Status Comments Father Mother Social History Tobacco Use Types Packs/Day Years Used Date Smoking Tobacco: Never Smokeless Tobacco: Never Tobacco Cessation:Counseling Given: Yes Alcohol Use Standard Drinks/Week Comments Defer 0 [...] week 09/06/2023 How often do you attend [facility] services? More than 4 times per year 09/06/2023 Do you belong to any clubs o r organizations such as roman catholic groups, unions, fraternal or athletic groups, or [...] Recorded Patient Health Questionnaire-2 Score 0 01/30/2023 [facility] - Occupational [...] place to sleep or slept in a jail (including now)? No 09/06/2023 Comments No Sex and Gender Information Value Date Recorded Sex Assigned at Not on file Legal Sex Female 8:28 PM EDT Gender Identity Not on file Sexual Orientation Not on file Last Filed Vital Signs Vital Sign Reading Time Taken Comments Blood Pressure 104/70 08/26/2024 10:26 AM EST Pulse 63 04/03/2023 10:37 AM EDT Temperature 37.9 C (100.2 F) 04/03/2023 10:37 AM EDT Respiratory Rate - - Oxygen Saturation 98% 04/03/2023 10:37 AM EDT Inhaled Oxygen Concentration - - Weight 79.4 kg (175 lb) 08/26/2024 10:26 AM EST Height 161.9 cm (5' 3.75 ) 08/26/2024 10:[address] Body Mass Index 30.27 08/26/2024 10:26 AM EST Plan of Treatment Health Maintenance Due Date Last Done Comments CT Colonography 1975 Colonoscopy 1975 Colorectal Cancer Screening 1975 FIT-DNA 1975 FIT 1975 FOBT 1975 Sigmoidoscopy 1975 Mammogram 11/13/2024 11/14/2023, 0309/2022, 08/03/2022 Influenza Vaccine (Season Ended) 2025 Cervical Cancer Screening 08/26/2029 HPV/Cotest 08/26/2029 Pap Smear 08/26/2029 08/26/2024, 08/14/2023 Procedures Procedure Name Priority Date/Time Associated Diagnosis Comments PAP SMEAR Routine 08/26/2024 12:00 AM EST MM TOMOSYNTHESIS SCREENING BI 11/14/2023 7:40 AM EDT from Last 3 Months or Most Recently Relevant to Health Maintenance Results * Pap Smear (08/26/2024 12:00 AM EST) Swab Cervical swab / Unknown [facility] CYTOLOGY ORDERABLES Final Re sult EXTERNAL LAB * MM TOMOSYNTHESIS SCREENING BI (11/14/2023 7:40 AM EDT) Anatomical Region Laterality Modality Other 11/14/2023 7:40 AM EDT Narrative 11/14/2023 7:[place] [address] Mammography Report Signed Patient: AGUSTÍN BURNHAM MR#: [id number] : 1975 Acct:[id number] Age/Sex: 47 / F ADM Date: 11/13/23 Loc: MAMMO Attending Dr: Yaya Bacon D.O. Ordering Physician: Yaya Bacon D.O. Results: Date of Service: 11/13/23 Follow Up: Procedure(s): MM tomosynthesis screening BI Accession Number(s): [id number] cc: Yaya Bacon D.O.; Physician,Non-Staff Aranza Patient Name: AGUSTÍN BURNHAM MR#: [id number] : 1975 Exam Date: 11/13/2023 Ordering Doctor: DR Yaya Bacon . RADIOLOGY REPORT PROCEDURE: MM TOMOSYNTHESIS SCREENING BI COMPARISON: MG MAMM SCREEN 3D GUNJAN CAD, 09/21/2021. MG MAMM SCREEN 3D GUNJAN CAD, 10/26/2022. INDICATIONS: screening Calculator Name NCI Breast Cancer Risk Assessment Tool 5 Year Breast Cancer Risk 0.80% Lifetime Breast Cancer Risk 8.40% Personal Breast Cancer No Personal Ovarian Cancer No Treatments None Family Cancers Aunt-maternal with breast cancer at age 43; Father with lung cancer at age 51. LOCATION: The [facility] BREAST COMPOSITION: Heterogeneously dense,which may obscure small masses. FINDINGS: DIAGNOSTIC CATEGORY 2--BENIGN FINDING. NO CHANGE FROM COMPARISON. Scattered benign-appearing nodules are present. Scattered benign-appearing lymph nodes are present. RIGHT BREAST: No significant suspicious finding. LEFT BREAST: No significant suspicious finding. RECOMMENDATIONS: ROUTINE MAMMOGRAM AND CLINICAL EVALUATION IN 12 MONTHS. PLEASE NOTE: A NORMAL MAMMOGRAM DOES NOT EXCLUDE THE POSSIBILITY OF BREAST CANCER. A CLINICALLY SUSPICIOUS PALPABLE LUMP SHOULD BE BIOPSIED. Dictated by: Abelino Rolon MD on 11/14/2023 at 07:38 Approved by: Abelino Rolon MD on 11/14/2023 at 07:39 Dictated By: Abelino Rolon M.D. Signed By: 11/14/23 0741 DD/ 0740 TD/TT: Burlap Bag Sewer: Procedure Note Radiology, Radiologist, MD - 11/14/2023 [place] [address] Mammography Report Signed Patient: AGUSTÍN BURNHAM LMR#: [id number] : 1975Acct:[id number] Age/Sex: 47 / FADM Date: 11/13/23 Loc: MAMMO Attending Dr: Yaya Bacon D.O. Ordering Physician: Yaya Bacon D.O.Results: Date of Service: 11/13/23Follow Up: Procedure(s): MM tomosynthesis screening BI Accession Number(s): [id number] cc: Yaya Bacon D.O.; Physician,Non-Staff Aranza Patient Name: AGUSTÍN BURNHAM MR#: [id number] : 1975 Exam Date: 11/13/2023 Ordering Doctor: DR Yaya Bacon . RADIOLOGY REPORT PROCEDURE: MM TOMOSYNTHESIS SCREENING BI COMPARISON: MG MAMM SCREEN 3D GUNJAN CAD, 09/21/2021. MG MAMM SCREEN 3DBIL CAD, 10/26/2022. INDICATIONS: screening Calculator Name NCI Breast Cancer Risk Assessment Tool 5 Year Breast Cancer Risk 0.80% Lifetime Breast Cancer Risk 8.40% Personal Breast Cancer No Personal Ovarian Cancer No Treatments None Family Cancers Aunt-maternal with breast cancer at age 43; Fatherwith lung cancer at age 51. LOCATION: The [facility] BREAST COMPOSITION: Heterogeneously dense,which may obscure smallmasses. FINDINGS: DIAGNOSTIC CATEGORY 2--BENIGN FINDING. NO CHANGE FROM COMPARISON. Scattered benign-appearing nodules are present. Scatteredbenign-appearing lymph nodes are present. RIGHT BREAST: No significant suspicious finding. LEFT BREAST: No significant suspicious finding. RECOMMENDATIONS: ROUTINE MAMMOGRAM AND CLINICAL EVALUATION IN 12 MONTHS. PLEASE NOTE: A NORMAL MAMMOGRAM DOES NOT EXCLUDE THE POSSIBILITY OFBREAST CANCER. A CLINICALLY SUSPICIOUS PALPABLE LUMP SHOULD BE BIOPSIED. Dictated by: Abelino Rolon MD on 11/14/2023 at 07:38 Approved by: Abelino Rolon MD on 11/14/2023 at 07:39 Dictated By: Abelino Rolon M.D. Signed By:11/14/2341 DD/ TD/TT: Burlap Bag Sewer: [facility] Arleen DO [facility] Final Result from Last 3 Months or Most Recently Relevant to Health Maintenance Insurance [employer] Care Teams Product Development Chemist Relationship Specialty Start Date End Date Anil Madison DO [address] [place] [address] PCP - General Family Medicine 01/30/23 Anil Madison DO [address] [place] [address] PCP - Medical [employer] 07/04/22 08/06/99 Hilda Barreto NP [address] [place] [address] Nurse Practitioner Family Medicine 01/30/23
--- OUTSIDE RECORDS SUMMARY | 2024-12-31 15:53 | XMS_ITS | Encounter Summary ---
Author Organization [facility] Address [address] [place] [address] Care Team Providers Care Engraver Block Name Role Phone Anil Madison DO Primary Care Provider [phone] Hilda Barreto IT SECURITY PROJECT MANAGER Unavailable Anil Madison DO Unavailable [phone] Encounter Details Date Type Department Care Team (Late st Contact Info) Description 11/14/2023 Clinisync Result Encounter [facility] External Department Unsolicited Yaya Bacon DO [address] [place] [address] Social History Tobacco Use Types [...] often do you attend chur ch or episcopal services? More than 4 times per year 09/06/2023 Do you belong to any clubs o r organizations such as latter day groups, unions, fraternal or athletic groups, or [...] Recorded Patient Health Questionnaire-2 Score 0 01/30/2023 [facility] Questionnaire Answer Date [...] place to sleep or slept in a group home (including now)? No 09/06/2023 Comments No Sex and Gender Information Value Date Recorded Sex Assigned at Not on file Legal Sex Female 8:28 PM EDT Gender Identity Not on file Sexual Orientation Not on file documented as of this encounter Plan of Treatment Not on file documented as of this encounter Procedures Procedure Name Priority Date/Time Associated Diagnosis Comments MM TOMOSYNTHESIS SCREENING BI 11/14/2023 7:40 AM EDT documented in this encounter Results * MM TOMOSYNTHESIS SCREENING BI (11/14/2023 7:40 AM EDT) Anatomical Region Laterality Modality Other 11/14/2023 7:4 0 AM EDT Narrative 11/14/2023 7:41 [place] [address] Mammography Report Signed Patient: AGUSTÍN BURNHAM MR#: [id number] : 1975 Acct:[id number] Age/Sex: 47 / F ADM Date: 11/13/23 Loc: MAMMO Attending Dr: Yaya Bacon D.O. Ordering Physician: Yaya Bacon D.O. Results: Date of Service: 11/13/23 Follow Up: Procedure(s): MM tomosynthesis screening BI Accession Number(s): [id number] cc: Yaya Bacon D.O.; Physician,Non-Staff Ar[place] Patient Name: AGUSTÍN BURNHAM MR#: [id number] : 1975 Exam Date: 11/13/2023 Ordering Doctor: [...] lung cancer at age 51. LOCATION: The [facility] BREAST COMPOSITION: Heterogeneously dense,which may obscure small [...] Signed By: 11/14/23 0741 DD/ 0740 TD/TT: Attendant Coin Operated Laundry: Procedure Note Radiology, Radiologist, - 11/14/2023 [place] [address] Mammography Report Signed Patient: AGUSTÍN BURNHAM LMR#: [id number] : 1975Acct:[id number] Age/Sex: 47 / FADM Date: 11/13/23 Loc: MAMMO Attending Dr: Yaya Arleen D.O. Ordering Physician: Yaya Bacon D.O.Results: Date of Service: 11/13/23Follow Up: Procedure(s): MM tomosynthesis screening BI Accession Number(s): [id number] cc: Yaya Bacon D.O.; Physician,Non-Staff Aranza Patient Name: AGUSTÍN BURNHAM MR#: [id number] : 1975 Exam Date: 11/13/2023 Ordering Doctor: [...] lung cancer at age 51. LOCATION: The [facility] BREAST COMPOSITION: Heterogeneously dense,which may obscure smallmasses. [...] 07:39 Dictated By: Abelino Rolon M.D. Signed By:11/14/23 0741 DD/ 0740 TD/TT: Attendant Coin Operated Laundry: Yaya Bacon DO [facility] Final Result documented in this encounter Visit Diagnoses Not on filedocumented in this encounter Care Teams Engraver Block Relationship Specialty Start Date End Date Anil Madison DO [address] [place] [address] PCP - General Family Medicine 6/26/23 Anil Madison DO [address] [place] [address] PCP - Medical [facility] 07/04/22 08/06/99 Hilda Barreto NP [address] [place] [address] Nurse Practitioner Family Medicine 01/30/23 documented as of this encounter
--- NOTE | 2024-12-31 15:55 | MM_ITS ---
Patient Name: AGUSTÍN BURNHAM MR#: [id number] : 1975 Exam Date: 12/31/2024 Ordering Doctor: DR KALYAN MENDOZA . RADIOLOGY REPORT PROCEDURE: MM TOMOSYNTHESIS SCREENING BI COMPARISON: MM TOMOSYNTHESIS SCREENING BI, 11/13/2023. MG MAMM SCREEN 3D GUNJAN CAD, 10/26/2022. MG MAMM SCREEN 3D GUNJAN CAD, 09/21/2021. MG MAMM GUNJAN SCRN W CAD DIG, 01/05/2012. INDICATIONS: Screening Calculator Name NCI Breast Cancer Risk Assessment Tool 5 Year Breast Cancer Risk 0.80% Lifetime Breast Cancer Risk 8.20% Personal Breast Cancer No Personal Ovarian Cancer No Treatments None Family Cancers Aunt-maternal with breast cancer at age ~43; Father with lung cancer at age 51. LOCATION: The [facility] BREAST COMPOSITION: The breasts are heterogeneously dense,which may obscure small masses. FINDINGS: RIGHT BREAST: No significant suspicious finding. Similar focal asymmetries are present. Benign-appearing calcifications are present. LEFT BREAST: No significant suspicious finding. Similar focal asymmetries are present. Benign-appearing calcifications are present. DIAGNOSTIC CATEGORY 2--BENIGN FINDING: RECOMMENDATIONS: ROUTINE MAMMOGRAM AND CLINICAL EVALUATION IN 12 MONTHS. PLEASE NOTE: A NORMAL MAMMOGRAM DOES NOT EXCLUDE THE POSSIBILITY OF BREAST CANCER. A CLINICALLY SUSPICIOUS PALPABLE LUMP SHOULD BE BIOPSIED. Dictated by: Daniel Ordoñez MD on 01/01/2025 at 08:27 Approved by: Daniel Ordoñez MD on 01/01/2025 at 08:29
== END 2024-12-31 15:53 | disposition home or self-care (01) ==
LOC: MAMMO 15:52
PROVIDERS: Visit Provider Obstetrics & Gynecology
DX: Z12.31 Encounter for screening mammogram for malignant neoplasm of breast (principal); Z80.3 Family history of malignant neoplasm of breast; Z80.1 Family history of malignant neoplasm of trachea, bronchus and lung
CPT/HCPCS: 77063; 77067